=== PATIENT | male | born 1960 | race Caucasian/White ===

== ENCOUNTER 2016-10-07 14:41 | Inpatient (IN) | payer BC ==
[2016-10-07] MEDS ORDERED: NS 0.9% 1000 ML* 1,000 ML IV ONE (15:06)
[2016-10-07 15:16] LABS: Hematocrit 42 % (42-52); Hemoglobin 13.5 g/dl (14.0-18.0); Mean Corpuscular HGB Conc 32 g/dl (31-36); Mean Corpuscular Hemoglobin 30 pg (27-31); Mean Corpuscular Volume 92 fL (80-94); Mean Platelet Volume 10 um3 (7.4-10.4); Red Blood Count 4.54 10^6/ul (4.0-5.4); Red Cell Distribution Width 16 % (10.5-15); White Blood Count 13.6 10^3/ul (3.5-10.8)
[2016-10-07 15:18] LABS: Add Diff/Slide Review? Slide Review Added; Comments Flag Yes
--- NOTE | 2016-10-07 15:30 | RAD ---
INDICATION: Short of breath COMPARISON: June 27, 2015 TECHNIQUE: An AP portable view obtained at 1515 hours is submitted. FINDINGS: Bones/Soft Tissues: There are no acute bony findings. Cardiomediastinal: The cardiomediastinal silhouette is normal. Lungs: There are no infiltrates. Pleura: There are no pleural effusions. Other: None IMPRESSION: NO ACTIVE DISEASE.
[2016-10-07 15:32] LABS: Albumin 3.6 g/dL (3.2-5.2); BUN/Creatinine Ratio 26.2 (8-20); Calcium 9.1 mg/dL (8.6-10.3); EGFR African American 164.6 (>60); Globulin 3.7 g/dL (2-4); Potassium 3.8 mmol/L (3.5-5.0); Total Bilirubin 0.3 mg/dL (0.2-1.0); Total Protein 7.3 g/dL (6.4-8.9)
[2016-10-07 15:34] LABS: Troponin I 0.01 ng/mL (<0.04)
[2016-10-07] MEDS ORDERED: Diltiazem IV* 5 MG/ML 5 ML VIAL (for loading dose/IV Push) (25 MG) IV SLOW PU ONE (17:10)
[2016-10-07] MEDS ORDERED: Diltiazem DRIP* 100 MG/100 ML ADDV.BAG IVPB ONE (17:10)
[2016-10-07 17:45] LABS: Magnesium 1.6 mg/dL (1.9-2.7)
[2016-10-07] MEDS ORDERED: Acetaminophen TAB* 325 MG PO PRN (17:52)
[2016-10-07 18:03] LABS: TSH (Thyroid Stimulating Horm) 3.55 mcIU/mL (0.34-5.60)
[2016-10-07] MEDS ORDERED: Magnesium Sulf 4 GM/100 ML IV* 4,000 MG/100 ML BAG IVPB ONE (18:05)
[2016-10-07] MEDS ORDERED: Heparin DRIP 25,000 UNITS(*) 25,000 UNITS/500 ML BAG IVPB SCH (18:30)
[2016-10-07] MEDS ORDERED: Enoxaparin(*) 100 MG/ML SYR SUBCUT SCH (19:00)
[2016-10-07] MEDS ORDERED: Heparin VIAL(*) 5000 UNITS/ML VIAL (FIVE THOUSAND) IV SCH (19:00)
[2016-10-07] MEDS ORDERED: Diltiazem DRIP* 100 MG/100 ML ADDV.BAG IVPB SCH (19:00)
[2016-10-07] MEDS ORDERED: Metoprolol Tartrate IV* 1 MG/ML 5 ML VIAL IV PRN (19:08)
[2016-10-07] MEDS: Diltiazem TAB* 60 MG PO SCH ×2 (19:45→23:38)
[2016-10-07] MEDS ORDERED: Metoprolol Succinate XL TAB* 50 MG PO SCH (21:00)
--- NOTE | 2016-10-07 21:10 | HP ---
ADMISSION HISTORY AND PHYSICAL: DATE OF ADMISSION: 10/07/16 PRIMARY CARE PROVIDER: Dr. Augustine. ADMITTING PROVIDER: VERONICA Kay SUPERVISING PHYSICIAN: Dr. Wilmer Pittman* (dictated by VERONICA Kay). CHIEF COMPLAINT: Shortness of breath and tachycardia. HISTORY OF PRESENT ILLNESS: This is a 56-year-old gentleman with a history of seizure disorder which is well controlled as well as hypertension, history of prostate cancer, and ITP who was seen by his primary care provider earlier today with complaints of lingering cold symptoms. He has had nasal congestion with hoarseness and cough for the last couple of weeks. He has noted some increased shortness of breath mostly with activity. He was at a hockey game with a friend and had to climb a hill and noted severe palpitations and shortness of breath with that amount of activity, but stated it was also quite cold outside. So, he thought his symptoms may be due to that. He has had no associated chest pain. He reports to have some mild lower extremity edema. The patient states that he is quite cognizant of [id number] cold preparations in regards to his blood pressure management and has avoided all stimulant medications. He has been using plain Robitussin and loratadine for his cold symptoms, but denies any other bhlh-eog-jajenqk medications. He has a couple cups of coffee daily. No cigarette use. No illicit substances. The patient does state that he believes that he has sleep apnea, but has never had a prior sleep study. PAST MEDICAL HISTORY: 1. Hypertension. 2. Seizure disorder, well controlled and followed by Dr. Anderson. 3. History of prostate cancer, status post prostatectomy. 4. ITP, status post splenectomy. PAST SURGICAL HISTORY: 1. Splenectomy. 2. Prostatectomy. HOME MEDICATIONS: 1. Lexapro 10 mg p.o. daily. 2. Metoprolol succinate 50 mg p.o. at bedtime. 3. Nifedipine extended release 30 mg p.o. at bedtime. 4. Benicar HCT 40/25 one tablet p.o. daily. 5. Omeprazole 40 mg p.o. daily. 6. Dilantin 330 mg p.o. at bedtime. FAMILY HISTORY: Cardiac history includes maternal grandmother who has known coronary disease. No history in primary relatives. SOCIAL HISTORY: The patient denies a history of smoking. No illicit substance abuse. Occasional alcohol consumption. He is and lives alone. 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 REVIEW OF SYSTEMS: As noted above in HPI. PHYSICAL EXAMINATION GENERAL: This is a pleasant obese gentleman lying comfortably in hospital stretcher in no acute distress. VITAL SIGNS: Temperature 97.6 degrees Fahrenheit, pulse 129 beats per minute, respiratory rate 26, oxygen saturation 97% on room air, and blood pressure 175/ 132 mmHg. HEENT: Head is normocephalic, atraumatic. Mucous membranes are pink and moist. NECK: Supple, was free of lymphadenopathy. RESPIRATORY: Lungs are clear to auscultation without wheezes, crackles, or rhonchi. CARDIOVASCULAR: Heart has a rapid rate. No murmurs, rubs, or gallops noted. ABDOMEN: Soft and nontender to palpation. EXTREMITIES: There is trace edema to the ankles bilaterally. SKIN: Limited exam shows no concerning rashes or lesions. PSYCH: The patient is alert and appropriately oriented. LABORATORY EVALUATION: CBC shows a white blood cell count of 13,600, hemoglobin of 13.5 g/dL, and a platelet count of 273,000. Comprehensive metabolic panel shows a sodium of 139 mmol/L, potassium 3.8 mmol/L , serum bicarb of 30, BUN 17, creatinine 0.65, estimated GFR of 128. Random glucose is 112 mg/dL. Lactic acid normal at 1.8. Magnesium low at 1.6. Transaminases and total bilirubin within normal limits. Troponin negative at 0.01. TSH normal at 3.55. IMAGING: EKG shows what appears to be a flutter with a rate of about 125 beats per minute. Chest x-ray shows no acute process. ASSESSMENT AND PLAN: This is a 56-year-old gentleman with a history of hypertension, seizure disorder, and remote history of prostate cancer, and idiopathic thrombocytopenic purpura who presents with new-onset atrial flutter. 1. Atrial flutter with rapid ventricular response: The patient has been bolused with diltiazem in the emergency department. He remains hypertensive and tachycardic. Plan to admit on the diltiazem drip to the ICU. He is hypomagnesemic and we will replace with IV supplementation. Plan to repeat magnesium in the morning. Initiate anticoagulation with Lovenox. It sounds like he is unsure as to exactly when symptoms started. We will involve Cardiology tomorrow if he is difficult to rate control or remains in atrial flutter to consider cardioversion. He will require MULU prior. We will order a transthoracic echocardiogram, however, to evaluate for significant valvular disease or left ventricular dysfunction. Suspect sleep apnea likely complicated by his recent nasal congestion is driving his cardiac dysrhythmia. Recommend outpatient sleep study. 2. Hypertension: We will continue his home antihypertensives with the exception of his hydrochlorothiazide which may be contributing to his hypomagnesemia. 3. Morbid obesity with a BMI of 47. 4. Seizure disorder - continue Dilantin. Seizures are well controlled. He has not had a seizure in several years. 5. Remote history of prostate cancer, status post prostatectomy. 6. Remote history of idiopathic thrombocytopenic purpura, status post splenectomy. 7. Code status: The patient is full code. 8. Healthcare proxy: The patient has not identified an individual. 9. DVT prophylaxis: The patient to be anticoagulated with Lovenox. DISPOSITION: The patient is being admitted to ICU under inpatient status with a diltiazem drip. Anticipated length of stay is greater than 2 days. VERONICA KAY CC: Dr. Augustine* [id number]/CPS #: [id number] MTDD
[2016-10-07] MEDS: Phenytoin CAP(*) 100 MG CAP.ER PO SCH (21:52)
[2016-10-07] MEDS: PHENYTOIN 30 MG PO SCH (21:53)
[2016-10-07 22:56] LABS: Troponin I 0.01 ng/mL (<0.04)
[2016-10-08 04:48] LABS: Hematocrit 39 % (42-52); Hemoglobin 12.8 g/dl (14.0-18.0); Mean Corpuscular HGB Conc 33 g/dl (31-36); Mean Corpuscular Hemoglobin 30 pg (27-31); Mean Corpuscular Volume 91 fL (80-94); Mean Platelet Volume 10 um3 (7.4-10.4); Red Cell Distribution Width 16 % (10.5-15); White Blood Count 16.4 10^3/ul (3.5-10.8)
[2016-10-08 04:49] LABS: BUN/Creatinine Ratio 22.4 (8-20); Calcium 8.7 mg/dL (8.6-10.3); EGFR African American 187.8 (>60); Magnesium 2.2 mg/dL (1.9-2.7); Potassium 3.5 mmol/L (3.5-5.0)
[2016-10-08] MEDS: Diltiazem TAB* 60 MG PO SCH ×3 (05:11→18:18)
--- NOTE | 2016-10-08 06:50 | ED ---
Dat Orosco Matthew, scribed for Christian Wong MD on 10/07/16 at 1518 . HPI Cardiac - HPI Summary HPI Summary: A 56 y/o male presents to the ED from his PCP's office for EKG changes today. The patient went to his PCP for a general illness and SOB, which he's had intermittently for the last 3 weeks. However, his symptoms have been persistent for the past week. Initially he had associated congestion and cough. Currently, he has SOB, chest congestion, hoarse voice, sinus congestion, post-nasal drip, cough, difficulty sleeping, and pedal edema. He denies palpitations. His SOB has improved over the last 2 days and he's now able to sleep laying down. However, his breathing still worsens lying down. PMHx includes Thrombocytopenia , seizures, HTN, and NO HLD. SHx radical prostatectomy, splenectomy, and double inguinal hernia repair. - History of Current Complaint Chief Complaint: EDShortnessOfBreath Stated Complaint: CHEST PAIN Hx Obtained From: Patient Onset/Duration: Started Days Ago, Atraumatic, Still Present Timing: Constant Current Severity: None Pain Intensity: 0 Pain Scale Used: 0-10 Numeric Associated Signs and Symptoms: Positive: Shortness of Breath, Cough, Nasal Congestion, Other: - EKG changes; chest congestion; hoarse voice, pedal edema. Negative: Palpitations - Additional Pertinent History Primary Care Physician: [id number] - Allergy/Home Medications Allergies/Adverse Reactions: Allergies Allergy/AdvReac Type Severity Reaction Status Date / Time Adhesive Tape Allergy REDNESS, Verified 07/10/15 12:06 ITCHNESS Naproxen Allergy Hives/Diff. Verified 07/10/15 12:06 Breathing/I tching ENVIRONMENTAL Allergy Unknown Uncoded 07/10/15 12:06 Reaction Details nutrasweet Allergy Headache Uncoded 07/10/15 12:06 PMH/Surg Hx/FS Hx/Imm Hx Cardiovascular History: Reports: Hx Hypertension - on medication, Other Cardiovascular Problems/Disorders - SCARLET FEVER A CHILD Respiratory History: Reports: Hx Sleep Apnea - POSSIBLE BUT NEVER BEEN DIAGNOSED WITH, Other Respiratory Problems/Disorders - MONO A TEEN GI History: Reports: Hx Gastroesophageal Reflux Disease - ON MEDICATION FOR Sensory History: Reports: Hx Contacts or Glasses - GLASSES Denies: Hx Hearing Aid Opthamlomology History: Reports: Hx Contacts or Glasses - GLASSES Neurological History: Reports: Hx Migraine - MONTHLY - TREATS WITH TYLENOL AND CAFFEINE, Hx Seizures - EPILEPTIC- HAS NOT HAD A SEIZURE SINCE AGE 18 OR 19 Psychiatric History: Reports: Hx Anxiety, Hx Depression - ON MEDICATION FOR - Cancer History Cancer Type, Location and Year: prostate 2010 Hx Chemotherapy: Yes - Surgical History Surgery Procedure, Year, and Place: 2010 prostatectomy, 2009 bilat inguinal hernia repair, oral surgery, endoscopy Hx Anesthesia Reactions: No Infectious Disease History: No Infectious Disease History: Reports: Hx Hepatitis Denies: Traveled Outside the [place] in Last 30 Days - Family History Family History: No FHx of malignant hyperthermia. No FHx of anesthesia reaction - Social History Alcohol Use: Rare Substance Use Type: Reports: None Smoking Status (MU): Current Some Day Smoker Amount Used/How Often: 2 CIGARS PER YEAR-OFF AND ON 30+ YEARS Review of Systems Constitutional: Other - Difficulty sleeping Eyes: Negative ENT: Other - Hoarse Voice; Post-nasal drip Positive: Nasal Discharge Cardiovascular: Negative Negative: Palpitations Respiratory: Other - Chest congestion Positive: Shortness Of Breath, Cough Gastrointestinal: Negative Genitourinary: Negative Positive: Edema - pedal Skin: Negative Neurological: Negative Psychological: Normal All Other Systems Reviewed And Are Negative: Yes Physical Exam Triage Information Reviewed: Yes Vital Signs On Initial Exam: Initial Vitals Temp Pulse Resp BP Pulse Ox 97.6 F 129 26 175/132 97 10/07/16 14:41 10/07/16 14:41 10/07/16 14:41 10/07/16 14:41 10/07/16 14:41 Vital Signs Reviewed: Yes Appearance: Positive: No Pain Distress, Obese - Morbidity Skin: Positive: Warm, Dry Head/Face: Positive: Normal Head/Face Inspection Eyes: Positive: Normal ENT: Positive: Normal ENT inspection, Pharyngeal erythema Neck: Positive: Supple, Nontender Respiratory/Lung Sounds: Positive: Clear to Auscultation, Breath Sounds Present Cardiovascular: Positive: Tachycardia Abdomen Description: Positive: Nontender, Soft Bowel Sounds: Positive: Present Musculoskeletal: Positive: Other - Very minimal peripheral edema Neurological: Positive: Alert, Oriented to Person Place, Time Psychiatric: Positive: Affect/Mood Appropriate - Karen Coma Scale Coma Scale Total: 15 Diagnostics - Vital Signs Vital Signs Temp Pulse Resp BP Pulse Ox 10/07/16 14:41 97.6 F 129 26 175/132 97 - Laboratory Lab Results: Lab Results 10/07/16 10/07/16 10/07/16 Range/Units 15:00 15:00 15:00 WBC 13.6 H (3.5-10.8) 10^3/ul RBC 4.54 (4.0-5.4) 10^6/ul Hgb 13.5 L (14.0-18.0) g/dl Hct 42 (42-52) % MCV 92 (80-94) fL MCH 30 (27-31) pg MCHC 32 (31-36) g/dl RDW 16 H (10.5-15) % Plt Count 273 (150-450) 10^3/ul MPV 10 (7.4-10.4) um3 Neut % (Auto) 59.8 (38-83) % Lymph % (Auto) 24.4 L (25-47) % [place] % (Auto) 12.9 H (1-9) % Eos % (Auto) 2.1 (0-6) % Baso % (Auto) 0.8 (0-2) % Absolute Neuts (auto) 8.2 H (1.5-7.7) 10^3/ul Absolute Lymphs (auto) 3.3 (1.0-4.8) 10^3/ul Absolute Monos (auto) 1.8 H (0-0.8) 10^3/ul Absolute Eos (auto) 0.3 (0-0.6) 10^3/ul Absolute Basos (auto) 0.1 (0-0.2) 10^3/ul Absolute Nucleated RBC 0.02 10^3/ul Nucleated RBC % 0.1 Sodium 139 (133-145) mmol/L Potassium 3.8 (3.5-5.0) mmol/L Chloride 101 (101-111) mmol/L Carbon Dioxide 30 (22-32) mmol/L Anion Gap 8 (2-11) mmol/L BUN 17 (6-24) mg/dL Creatinine 0.65 L (0.67-1.17) mg/dL Est GFR ( Amer) 164.6 (>60) Est GFR (Non-Af Amer) 128.0 (>60) BUN/Creatinine Ratio 26.2 H (8-20) Glucose 112 H (70-100) mg/dL Lactic Acid 1.8 (0.5-2.0) mmol/L Calcium 9.1 (8.6-10.3) mg/dL Magnesium 1.6 L (1.9-2.7) mg/dL Total Bilirubin 0.30 (0.2-1.0) mg/dL AST 28 (13-39) U/L ALT 36 (7-52) U/L Alkaline Phosphatase 97 (34-104) U/L Troponin I 0.01 (<0.04) ng/mL C-Reactive Protein (< 5.00) mg/L B-Natriuretic Peptide ( - 100) pg/mL Total Protein 7.3 (6.4-8.9) g/dL Albumin 3.6 (3.2-5.2) g/dL Globulin 3.7 (2-4) g/dL Albumin/Globulin Ratio 1.0 (1-3) TSH 3.55 (0.34-5.60) mcIU/mL 10/07/16 10/07/16 Range/Units 15:00 16:36 WBC (3.5-10.8) 10^3/ul RBC (4.0-5.4) 10^6/ul Hgb (14.0-18.0) g/dl Hct (42-52) % MCV (80-94) fL MCH (27-31) pg MCHC (31-36) g/dl RDW (10.5-15) % Plt Count (150-450) 10^3/ul MPV (7.4-10.4) um3 Neut % (Auto) (38-83) % Lymph % (Auto) (25-47) % [place] % (Auto) (1-9) % Eos % (Auto) (0-6) % Baso % (Auto) (0-2) % Absolute Neuts (auto) (1.5-7.7) 10^3/ul Absolute Lymphs (auto) (1.0-4.8) 10^3/ul Absolute Monos (auto) (0-0.8) 10^3/ul Absolute Eos (auto) (0-0.6) 10^3/ul Absolute Basos (auto) (0-0.2) 10^3/ul Absolute Nucleated RBC 10^3/ul Nucleated RBC % Sodium (133-145) mmol/L Potassium (3.5-5.0) mmol/L Chloride (101-111) mmol/L Carbon Dioxide (22-32) mmol/L Anion Gap (2-11) mmol/L BUN (6-24) mg/dL Creatinine (0.67-1.17) mg/dL Est GFR ( Amer) (>60) Est GFR (Non-Af Amer) (>60) BUN/Creatinine Ratio (8-20) Glucose (70-100) mg/dL Lactic Acid (0.5-2.0) mmol/L Calcium (8.6-10.3) mg/dL Magnesium (1.9-2.7) mg/dL Total Bilirubin (0.2-1.0) mg/dL AST (13-39) U/L ALT (7-52) U/L Alkaline Phosphatase (34-104) U/L Troponin I (<0.04) ng/mL C-Reactive Protein 16.58 H (< 5.00) mg/L B-Natriuretic Peptide 68 ( - 100) pg/mL Total Protein (6.4-8.9) g/dL Albumin (3.2-5.2) g/dL Globulin (2-4) g/dL Albumin/Globulin Ratio (1-3) TSH (0.34-5.60) mcIU/mL Result Diagrams: 10/08/16 04:15 10/08/16 04:15 Lab Statement: Any lab studies that have been ordered have been reviewed, and results considered in the medical decision making process. - Radiology CXR Xray Interpretation: No Acute Changes - IMPRESSION: NO ACTIVE DISEASE. Radiology Interpretation Completed By: Radiologist - EKG 14:43 Cardiac Rate: Tachycardia - 129 bpm EKG Rhythm: Sinus Tachycardia EKG Interpretation: Or Atrial Flutter; 2:1 Block Re-Evaluation - Re-Evaluation First Eval Re-Evaluation Time: 17:09 Change: Unchanged Comment: The patient was found to be in atrial flutter and continues to have tachycardia. Will discuss the case with Dr. May for admission. Disposition - Course Course Of Treatment: Mr. Maynard presented from his PMD with a C/O only URI symptoms including SOB with exertion. He was tachy and his ecg showed either a sinus or a-flutter. He was hydrated a little and then with carotid massage I was able to parse out that he was in a-flutter with a 2:1 block. He was started on cardizem at that point and the hospitalists were asked to admit him. - Diagnoses Provider Diagnoses: Atrial flutter with rapid ventricular response - Physician Notifications Discussed Care Of Patient With: Dr. May (Hospitalist) at 17:11 -- Notified of patient's history and will admit the patient into her services. - Critical Care Time Critical Care Time: 30-74 min Discharge - Discharge Plan Condition: Stable Disposition: ADMITTED TO [facility] The documentation as recorded by the Dat potts Matthew accurately reflects the service I personally performed and the decisions made by me, Christian Wong MD.
[2016-10-08] MEDS: Omeprazole CAP* 20 MG PO SCH (07:11)
[2016-10-08] MEDS: Citalopram TAB* 20 MG PO SCH (08:47)
[2016-10-08] MEDS: Valsartan TAB* 160 MG PO SCH (08:47)
[2016-10-08] MEDS ORDERED: Hydrochlorothiazide TAB* 25 MG PO SCH (09:00)
[2016-10-08] MEDS ORDERED: Metoprolol Tartrate TAB* 50 mg PO SCH ×2 (09:00→21:00)
[2016-10-08] MEDS ORDERED: Metoprolol Tartrate TAB* 25 MG PO ONE (12:00)
--- NOTE | 2016-10-08 12:35 | ECHO ---
Patient: [facility]GE [facility] Rec#: [id number] : 1960 Date: 10/08/2016 Age: 56y Height: 193 cm / 76.0 in Weight: 165 kg / 363.7 lbs Sex: M BSA: 2.86 Room#: 439 Admit Date#: 10/07/2016 Type: Inpatient Referring: Deny Antonio Reading: Anmol Perera MD [employer] Scientist: Lev Bentley RDCS CC: Anne Marie Augustine MD Transthoracic Echocardiogram Indication: NEW A.FLUTTER, SOB BP: 159/101 HR: 103 Rhythm: A-Flutter Findings History: HTN,seizure disorder, prostate cancer, ITP, splenectomy,morbid obesity Technical Comments: The study is technically difficult. Completed 1200 The study is technically limited due to poor acoustic windows. The study is technically limited due to poor parasternal windows. The study is technically limited due to poor apical windows. The study is technically limited due to patient body habitus. Left Ventricle: The left ventricular chamber size is normal. Mild concentric left ventricular hypertrophy is observed. Mild global hypokinesis of the left ventricle is observed. There is mildly decreased left ventricular systolic function. The estimated ejection fraction is 40-45%. The assessment of diastolic function is non-diagnostic. Left Atrium: The left atrium is mildly dilated. Right Ventricle: The right ventricle is mild to moderately dilated. The right ventricular global systolic function is mildly to moderately reduced. Right Atrium: The right atrium is moderately dilated. Aortic Valve: The aortic valve structure is not well visualized. There is no evidence of aortic regurgitation. There is no evidence of aortic stenosis. Mitral Valve: There is trace to mild mitral regurgitation. Tricuspid Valve: The tricuspid valve structure is not well visualized. There is trace tricuspid regurgitation. Unable to estimate the right ventricular systolic pressure. Pulmonic Valve: The pulmonic valve structure is not well visualized. There is no evidence of pulmonic regurgitation. There is no pulmonic stenosis. Pericardium: There is no pericardial effusion. Aorta: There is no dilatation of the ascending aorta. There is no dilatation of the aortic arch. There is no dilation of the aortic root. Pulmonary Artery: The main pulmonary artery is not well visualized. Venous: The inferior vena cava appears normal in size. There is a greater than 50% respiratory change in the inferior vena cava dimension. Conclusions The study is technically difficult. Completed 1200 There is mildly decreased left ventricular systolic function. The estimated ejection fraction is 40-45%. Mild global hypokinesis of the left ventricle is observed. The left ventricular chamber size is normal. Mild concentric left ventricular hypertrophy is observed. The left atrium is mildly dilated. The right ventricle is mild to moderately dilated. The right ventricular global systolic function is mildly to moderately reduced. The right atrium is moderately dilated. Functionally benign heart valves. There is no prior echocardiogram available to compare with at this time. Results discussed with Ms. Antonio of [facility] who are the attending service. Measurements Name Value Normal Range RVIDd (AP) 2D 3.2 cm (0.9 - 2.6) RVDdMajor (2D) 3.5 cm (2.2 - 4.4) RAd ISD 4CH 6 cm (3.4 - 4.9) RA (A4C)W 3.6 cm (2.9 - 4.6) IVSd (2D) 1.1 cm (0.6 - 1) LVPWd (2D) 1.3 cm (0.6 - 1) LVIDd (2D) 5.2 cm (3.6 - 5.4) LVIDs (2D) 3.9 cm - LV FS (2D) 23 % (25 - 45) Aortic Annulus 1.5 cm (1.4 - 2.6) Ao root diameter (2D) 2.9 cm (2.1 - 3.5) Ascending Ao 3.2 cm (2.1 - 3.4) Aortic arch 3.3 cm (1.8 - 3.4) LA dimension (AP) 2D 4.1 cm (2.3 - 3.8) LAd ISD 4CH 5.4 cm (2.9 - 5.3) LA ISD 4CH W 4 cm (2.5 - 4.5) Name Value Normal Range LA ESV SP 4CH (A/L) 76 ml - LA ESV SP 2CH (A/L) 105 ml - LA ESV BP (A/L) 92 ml - LA ESV BP (A/L) index 32.06 ml/m2 - LA ESV SP 4CH (MOD) 73 ml - LA ESV SP 2CH (MOD) 99 ml - Name Value Normal Range MV E-wave Vmax 0.93 m/sec - MV deceleration time 116 msec - MV A-wave Vmax 0.92 m/sec - MV E:A ratio 1.03 ratio - LV septal e' Vmax 0.09 m/sec - LV lateral e' Vmax 0.09 m/sec - LV E:e' septal ratio 10.3 ratio - LV E:e' lateral ratio 10.3 ratio - Name Value Normal Range AV Vmax 0.74 m/sec - AV VTI 9.6 cm - AV peak gradient 2.19 mmHg - AV mean gradient 1.14 mmHg - LVOT diameter 1.8 cm - LVOT Vmax 0.6 m/sec - EVAN (continuity Vmax) 2.1 cm2 - EVAN (continuity VTI) 2.8 cm2 - Name Value Normal Range IVC diameter 0.75 cm - Name Value Normal Range PV Vmax 0.6 m/sec -
[2016-10-08] MEDS ORDERED: Potassium Chlor TAB* 20 MEQ TAB.ER PO ONE (13:51)
[2016-10-08] MEDS ORDERED: Furosemide IV* 10 MG/ML 10 ML VIAL (100 MG) IV ONE (14:23)
--- NOTE | 2016-10-08 14:23 | PN ---
Subjective Date of Service: 10/08/16 Interval History: This is a 56 yo gentleman with HTN and morbid obesity admitted yesterday to new onset atrial flutter with a rapid rate. He has been started on oral diltiazem and increased his home dose of metoprolol. Mg was replaced overnight. Patient reports no complaints of dyspnea or chest pain. He has some LE edema, not any worse since admission. Objective Active Medications: Acetaminophen (Tylenol Tab*) 650 mg PO Q4H PRN PRN Reason: FEVER/PAIN Citalopram Hydrobromide (Celexa Tab*) 20 mg PO DAILY [facility] Last Admin: 10/08/16 08:47 Dose: 20 mg Diltiazem HCl (Cardizem Tab*) 60 mg PO Q6HR [facility] Metoprolol Tartrate (Lopressor Iv*) 5 mg IV Q6H PRN PRN Reason: HR >120 bpm Metoprolol Tartrate (Lopressor Tab*) 75 mg PO Q12HR [facility] Omeprazole (Prilosec Cap*) 40 mg PO DAILY@0730 [facility] Last Admin: 10/08/16 07:11 Dose: 40 mg Phenytoin Sodium (Dilantin Cap(*)) 30 mg PO BEDTIME [facility] Last Admin: 10/07/16 21:53 Dose: 30 mg Phenytoin Sodium (Dilantin Cap(*)) 300 mg PO BEDTIME [facility] Last Admin: 10/07/16 21:52 Dose: 300 mg Rivaroxaban (Xarelto (*)) 20 mg PO 1700 [facility] Valsartan (Diovan Tab*) 320 mg PO DAILY [facility] Last Admin: 10/08/16 08:47 Dose: 320 mg Vital Signs: Temp Pulse Resp BP Pulse Ox 97.4 F 106 20 148/101 95 10/08/16 12:09 10/08/16 12:09 10/08/16 12:09 10/08/16 12:09 10/08/16 12:09 Oxygen Devices in Use Now: None Appearance: Well appearing obese middle aged gentleman in NAD Neck: NL Appearance and Movements; NL JVP Respiratory: Symmetrical Chest Expansion and Respiratory Effort, Clear to Auscultation Cardiovascular: NL Sounds; No Murmurs; No JVD, RRR - tachycardic Abdominal: NL Sounds; No Tenderness; No Distention Extremities: - - 1+ LE edema Neurological: Alert and Oriented x 3 Result Diagrams: 10/08/16 04:15 10/08/16 04:15 Additional Lab and Data: . Diagnostic Imaging: CXR - NAD Tele - atrial flutter, rate 100-130 bpm, one 2.3 sec pause Echo - LVEF 40-45%, mild to mod RV dysfunction Assess/Plan/Problems-Billing Assessment: This is a 56 yo gentleman with HTN and morbid obesity who presents with new onset atrial flutter. - Patient Problems (1) Atrial flutter Comment: Remains in atrial flutter with rate 100-130 bpm Will increase metoprolol tartrate further to 75 mg bid Continue immediate release diltiazem Mg has now been corrected Borderline hypokalemic, will replace orally Echo shows mildly reduced LV fxn, but more notably RV fxn Appreciate cardiology consult (2) Acute systolic heart failure Comment: RV and LV dysfunction Ddimer negative Likely due to untreated sleep apnea and hypertension Will lightly diuress with IV Lasix (3) Leukocytosis Comment: Unsure of etiology No obvious source of acute bacterial infection Procalcitonin <0.1, CRP only mildly elevated No assoc L shift Perhaps due to viral illness, he has been complaining of recent cough/congestion No infiltrate on CXR, afebrile No other focal complaints to suggest another source of infection (4) HTN (hypertension) Comment: Poor control Cont valsartan and MARK-I HCTZ held due to hypokalemia and hypomagnesemia Titrating up metoprolol and diltiazem for rate control (5) Morbid obesity Comment: BMI 46 Discussed weight loss in detail, his comorbid conditions would benefit greatly from weight loss Suggested [facility] Patient has been considering gastric bypass surgery Status and Disposition: Patient requires continued hospital stay. Possible discharge tomorrow.
--- NOTE | 2016-10-08 17:57 | CONS ---
CC: Anne Marie Augustine MD CARDIOLOGY CONSULTATION: DATE OF CONSULT: 10/08/16 REFERRAL PROVIDERS: 1. VERONICA Bruner 2. Lizy Mya MD REASON FOR CARDIOLOGY CONSULTATION: Newly diagnosed atrial flutter. HISTORY OF PRESENT ILLNESS: The patient states that he has had cold symptoms for about a month including sinus drainage, cough, and [id number] hoarse voice. He went to see his primary care physician yesterday "to get antibiotics" and there his pulse was apparently felt to be high. He had an EKG, which showed atrial flutter and he was then sent to the emergency room. Here, he was originally begun on a Cardizem drip and heparin drip and his heart rate is better controlled. The patient denies any clear palpitations including at this time. He states he may have had 1 episode of palpitations. He has had some chest discomfort with coughing, but no angina. He has felt shortness of breath with climbing stairs. The patient denies any past cardiac history. PAST MEDICAL HISTORY: Include: 1. Hypertension. 2. Seizure disorder, well controlled and followed by Dr. Anderson of Neurology. Per the patient, his last seizure was in the . 3. History of prostate cancer, status post prostatectomy in 2010. He is followed by Dr. Peter. He apparently recently has had microscopic hematuria. 4. 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 5. History of migraine headaches. 6. History of significant anxiety and depression. 7. GERD symptoms. PAST SURGICAL HISTORY: Splenectomy and prostatectomy. OUTPATIENT MEDICATIONS: 1. Lexapro 10 mg once a day. 2. Toprol-XL 50 mg p.o. at bedtime. 3. Nifedipine 30 mg p.o. at bedtime. 4. Benicar/hydrochlorothiazide 40/25 mg once a day. 5. Omeprazole 40 mg once a day. 6. Dilantin 330 mg p.o. at bedtime. ALLERGIES TO MEDICATIONS: The patient believes are to NAPROSYN, which he feels may have caused him to be wheezy and hivey in the past, so he avoids that medication. He also avoids NUTRASWEET as that has given him headaches. He denies shrimp, seafood, or dye allergy. FAMILY HISTORY: He denies cardiac disease. His paternal grandfather of a stroke in his 50s. No family history of diabetes. There is a family history of cancer. SOCIAL HISTORY: He smokes 2 cigars per year. He has never smoked cigarettes. He drinks 2 drinks of alcohol per month and does not abuse alcohol. He last used pot in his 40s, but does not use drugs regularly at this time. He is since 2001 and lives alone. 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 He does not do regular exercise. REVIEW OF SYSTEMS: He denies personal history of stroke, vomiting blood, coughing up blood, bright red blood per rectum, or bleeding stomach ulcers. They is concern about he has microscopic hematuria. He has had a history of prostate cancer, status post prostatectomy at the age of 51. He has had ITP with a history of splenectomy in July 2015. He feels he may have a large nonobstructive renal calculus versus cyst on his kidney, which his urologist has apparently been following. There is some question of whether the patient has a history of asthma. He denies emphysema. He has had pneumonia, not requiring hospitalization. He denies tuberculosis. He has questionable obstructive sleep apnea as his ex- girlfriend has noted for the past 4 years that the patient has had episodes of apnea while sleeping. He does not use home oxygen. He denies diabetes, hypertension, prior PR, congestive heart failure, cardiac surgery, cardiac murmurs, or palpitations. He has a history of significant anxiety and depression. He denies lupus or psoriasis. He has a history of seizures, last in the 1980s. He denies myasthenia gravis. He denies pulmonary emboli, deep venous thrombosis, or peripheral arterial disease. He has occasional pain in his left calf when he walks. He has recently had edema for the past month. He has a history of GERD. He denies renal disease, liver disease, or thyroid disease. All other review of systems are negative except as described above. PHYSICAL EXAM: Height 6 feet 2 inches, weight 359 pounds, temperature is 98.7 degrees Fahrenheit, pulses range from 96 to 116, blood pressure 159/101 to 143/ 116, respiratory rate 18, and O2 saturation 94%. General exam: He is a pleasant, obese gentleman, in no acute distress at rest, but he is quite anxious. HEENT: Shows the cranium is normocephalic and atraumatic. He has moist mucosal membranes. Neck: Veins are not distended on very limited assessment as the patient is obese and has a garcía. There are no carotid bruits. Visible skin: Warm and perfused. Affect appropriate. He appears oriented. No significant kyphoscoliosis on back exam. Lungs: Clear to auscultation. Cardiac Exam: S1 and S2. Irregular rate, controlled. No significant murmurs, rubs, or gallops. PMI is nondisplaced. Abdomen: Soft, obese, and appears benign. Extremities: With no more than trivial peripheral edema. Pulses appear grossly intact. DIAGNOSTIC STUDIES/LAB DATA: A 12-lead EKG is reviewed from 10/08/16 at 06:58 a.m., which shows atrial flutter at a heart rate of 111 beats per minute with a nonspecific IVCD. White blood cell count today is 16.4 and that is elevated further from 13.6 on admission, hematocrit is 39 and platelet count is 256. Sodium 135, potassium 3.5, chloride 100, and bicarbonate 30. His troponin was 0.01 followed by 0.01. Creatinine is 0.58 and BUN 13. CRP is 16.58. BNP is 68. TSH 3.55. Magnesium was 1.6 on admission and after repletion is now 2.2. Chest x-ray report on admission per Radiology, no acute disease. IMPRESSION: Mr. Maynard is a pleasant 56-year-old gentleman with presumed obstructive sleep apnea, known history of hypertension, obesity who has had upper respiratory infection symptoms for a month. He is incidentally discovered to have atrial flutter responding to rate control. The onset of his atrial flutter is unknown in terms of timing. The clear precipitant of his atrial flutter appears to be likely undiagnosed and hence untreated obstructive sleep apnea, current upper respiratory infection with leukocytosis and increased CRP as well as initial hypomagnesemia likely related to diuretic use. For now, I would recommend to correct the underlying conditions prior to resuming normal sinus rhythm to assure best chance at stability of resumption of sinus rhythm and so will pursue in the short term heart rate control and anticoagulation as those underlying suspected precipitant issues are addressed. PLAN/RECOMMENDATIONS: 1. Recommend continuing treatment of underlying conditions including URI, hypomagnesemia, and would keep magnesium greater than 2, potassium greater than 4 as well as evaluating for sleep apnea and if present, as seems likely, treating his clearly untreated sleep apnea if present as untreated VAUGHN will promote atrial flutter. 2. Agree with heart rate control with Lopressor and I would change to 75 mg p.o. b.i.d. and treat with Xarelto 20 mg once a day for now while contemplating cardioversion. If his heart rate remains high despite the Lopressor, could add diltiazem CD 120 mg once a day. 3. The patient should follow up with myself in 6 to 8 weeks and if his atrial flutter persists at that time despite exclusion of obstructive sleep apnea (or treatment of it if present) as well as resolution of URI and electrolyte abnormalities, then I would consider cardioversion at that time. 4. Echo pending which will be reported separately. 5. Other management as per the hospitalist medicine service and I have discussed the case with VERONICA Lu, of the hospitalist medicine service. The above was discussed in detail with the patient and he appears to be in agreement with these recommendations. [id number]/[facility] #: [id number] MTDD
[2016-10-08] MEDS: Rivaroxaban TAB(*) 20 MG TAB PO SCH (18:18)
[2016-10-08] MEDS: PHENYTOIN 30 MG PO SCH (20:10)
[2016-10-08] MEDS: Phenytoin CAP(*) 100 MG CAP.ER PO SCH (20:10)
[2016-10-09] MEDS: Diltiazem TAB* 60 MG PO SCH ×2 (00:05→08:05)
[2016-10-09 08:24] LABS: Hematocrit 41 % (42-52); Hemoglobin 13.3 g/dl (14.0-18.0); Mean Corpuscular HGB Conc 32 g/dl (31-36); Mean Corpuscular Hemoglobin 30 pg (27-31); Mean Corpuscular Volume 92 fL (80-94); Mean Platelet Volume 10 um3 (7.4-10.4); Red Blood Count 4.51 10^6/ul (4.0-5.4); Red Cell Distribution Width 15 % (10.5-15); White Blood Count 11.9 10^3/ul (3.5-10.8)
[2016-10-09] MEDS: Citalopram TAB* 20 MG PO SCH (08:33)
[2016-10-09] MEDS: Omeprazole CAP* 20 MG PO SCH (08:33)
[2016-10-09] MEDS: Valsartan TAB* 160 MG PO SCH (08:33)
[2016-10-09 08:50] LABS: BUN/Creatinine Ratio 22.6 (8-20); EGFR African American 173.9 (>60); EGFR Non-African American 135.2 (>60); Magnesium 1.9 mg/dL (1.9-2.7); Potassium 4.3 mmol/L (3.5-5.0)
[2016-10-09] MEDS ORDERED: Magnesium Sulfate 1 GM IV* 1 GM/100 ML BAG IV ONE (09:12)
[2016-10-09] MEDS: Metoprolol Tartrate TAB* 25 MG PO SCH ×2 (09:47→20:47)
[2016-10-09] MEDS ORDERED: Furosemide IV* 10 MG/ML 2 ML VIAL (20 MG) IV SLOW PU ONE (14:13)
--- NOTE | 2016-10-09 14:21 | PN ---
Subjective Date of Service: 10/09/16 Interval History: Pt is feeling well. He denies any pain. No SOB. Objective Active Medications: Acetaminophen (Tylenol Tab*) 650 mg PO Q4H PRN PRN Reason: FEVER/PAIN Last Admin: 10/08/16 18:18 Dose: 650 mg Citalopram Hydrobromide (Celexa Tab*) 20 mg PO DAILY [facility] Last Admin: 10/09/16 08:33 Dose: 20 mg Metoprolol Tartrate (Lopressor Tab*) 25 mg PO BID [facility] Last Admin: 10/09/16 09:47 Dose: 25 mg Omeprazole (Prilosec Cap*) 40 mg PO DAILY@0730 [facility] Last Admin: 10/09/16 08:33 Dose: 40 mg Phenytoin Sodium (Dilantin Cap(*)) 30 mg PO BEDTIME [facility] Last Admin: 10/08/16 20:10 Dose: 30 mg Phenytoin Sodium (Dilantin Cap(*)) 300 mg PO BEDTIME [facility] Last Admin: 10/08/16 20:10 Dose: 300 mg Rivaroxaban (Xarelto (*)) 20 mg PO 1700 [facility] Last Admin: 10/08/16 18:18 Dose: 20 mg Valsartan (Diovan Tab*) 320 mg PO DAILY [facility] Last Admin: 10/09/16 08:33 Dose: 320 mg Vital Signs 10/08/16 10/08/16 10/08/16 15:47 19:19 20:00 Temperature 98.5 F 97.5 F Pulse Rate 114 103 Respiratory 18 16 18 Rate Blood Pressure 133/98 156/96 (mmHg) O2 Sat by Pulse 92 Oximetry 10/08/16 10/09/16 10/09/16 23:19 03:56 08:00 Temperature 97.2 F 96.5 F Pulse Rate 94 87 Respiratory 16 20 18 Rate Blood Pressure 138/92 147/79 (mmHg) O2 Sat by Pulse 93 96 Oximetry 10/09/16 10/09/16 08:42 11:31 Temperature 98.2 F 98.1 F Pulse Rate 130 99 Respiratory 16 16 Rate Blood Pressure 147/110 152/100 (mmHg) O2 Sat by Pulse 97 94 Oximetry Oxygen Devices in Use Now: None - 94% Appearance: Middle aged morbidly obese male lying flat in bed, NAD Eyes: No Scleral Icterus Ears/Nose/Mouth/Throat: Mucous Membranes Moist Respiratory: Symmetrical Chest Expansion and Respiratory Effort, Clear to Auscultation Cardiovascular: NL Sounds; No Murmurs; No JVD, - - irregularly irregular, tachycardic, 1+ B/L LE edema Abdominal: NL Sounds; No Tenderness; No Distention Extremities: No Clubbing, Cyanosis Skin: No Rash or Ulcers, No Nodules or Sclerosis Neurological: Alert and Oriented x 3 Result Diagrams: 10/09/16 07:55 10/09/16 07:55 Additional Lab and Data: . Diagnostic Imaging: CXR - NAD Tele - atrial flutter, rate 100-130 bpm, one 2.3 sec pause Echo - LVEF 40-45%, mild to mod RV dysfunction Assess/Plan/Problems-Billing Mr Maynard is a 56 yo M with a PMHx of HTN and morbid obesity who presents with new onset atrial flutter. - Patient Problems (1) Atrial flutter Current Visit: Yes Status: Acute Code(s): I48.92 - UNSPECIFIED ATRIAL FLUTTER SNOMED Code(s): 6800514 Comment: The patient's HR is under fair control currently-elevated this AM as his metoprolol and diltiazem were discontinued due to 5 second pause overnight while sleeping. I have started back metoprolol tartrate 25mg BID ( down from 75mg BID). His HR increases with activity. I suspect his afib is secondary to untreated obstructive sleep apnea. I suspect the pauses are related to the VAUGHN. Continue xarelto. Borderline hypokalemic, will replace orally Echo shows mildly reduced LV fxn, but more notably RV fxn Appreciate cardiology consult (2) Diastolic CHF, acute Current Visit: Yes Status: Acute Code(s): I50.31 - ACUTE DIASTOLIC ( CONGESTIVE) HEART FAILURE SNOMED Code(s): 063220729 Comment: Likely related to rapid afib. His EF is 40-45%. Give lasix 20mg IV x1 now. (3) Morbid obesity Current Visit: Yes Status: Acute Code(s): E66.01 - MORBID (SEVERE) OBESITY DUE TO EXCESS CALORIES SNOMED Code(s): 160925426 Comment: Encourage diet/exercise. (4) HTN (hypertension) Current Visit: Yes Status: Acute Code(s): I10 - ESSENTIAL (PRIMARY) HYPERTENSION SNOMED Code(s): 00618813 Comment: BP remains poorly controlled. Continue metoprolol and valsartan. Add back HCTZ. Monitor electrolytes and BP. (5) VAUGHN (obstructive sleep apnea) Current Visit: Yes Status: Acute Code(s): G47.33 - OBSTRUCTIVE SLEEP APNEA ( ADULT) (PEDIATRIC) SNOMED Code(s): 68370483 Comment: Pt likely has VAUGHN. Dr. De Guzman will see the patient tomorrow. He can not be set up for CPAP until he has a sleep study that can not be done as an inpatient. Will check nocturnal desaturation study tonight to see if he qualifies for supplemental O2. (6) DVT prophylaxis Current Visit: Yes Status: Acute Code(s): CLI4365 - SNOMED Code(s): 833513154 Comment: giovani (7) Full code status Current Visit: Yes Status: Acute Code(s): Z78.9 - OTHER SPECIFIED HEALTH STATUS SNOMED Code(s): 201901969 Status and Disposition: Patient requires continued hospital stay. Possible discharge tomorrow.
[2016-10-09] MEDS: Hydrochlorothiazide TAB* 25 MG PO SCH (14:42)
[2016-10-09] MEDS: Rivaroxaban TAB(*) 20 MG TAB PO SCH (16:29)
[2016-10-09] MEDS ORDERED: Acetaminophen TAB* 325 MG ONE (20:45)
[2016-10-09] MEDS: Phenytoin CAP(*) 100 MG CAP.ER PO SCH (20:48)
[2016-10-09] MEDS: PHENYTOIN 30 MG PO SCH (20:49)
[2016-10-10] MEDS: Metoprolol Tartrate TAB* 25 MG PO SCH (08:07)
[2016-10-10] MEDS: Valsartan TAB* 160 MG PO SCH (08:07)
[2016-10-10] MEDS: Hydrochlorothiazide TAB* 25 MG PO SCH (08:07)
[2016-10-10] MEDS: Omeprazole CAP* 20 MG PO SCH (08:08)
[2016-10-10] MEDS: Citalopram TAB* 20 MG PO SCH (08:08)
[2016-10-10] MEDS ORDERED: Influenza VAC *QUAD* 2016-17* 0.5 ML SYRINGE IM ONE (09:00)
--- NOTE | 2016-10-10 14:22 | PN ---
Subjective Date of Service: 10/10/16 Interval History: Pt is feeling well currently. He stats that he is nervous about how people have been talking about his pauses, HR and desaturation study. Objective Active Medications: Acetaminophen (Tylenol Tab*) 650 mg PO Q4H PRN PRN Reason: FEVER/PAIN Last Admin: 10/08/16 18:18 Dose: 650 mg Citalopram Hydrobromide (Celexa Tab*) 20 mg PO DAILY [facility] Last Admin: 10/10/16 08:08 Dose: 20 mg Hydrochlorothiazide (Hydrodiuril Tab*) 25 mg PO DAILY [facility] Last Admin: 10/10/16 08:07 Dose: 25 mg Omeprazole (Prilosec Cap*) 40 mg PO DAILY@0730 [facility] Last Admin: 10/10/16 08:08 Dose: 40 mg Phenytoin Sodium (Dilantin Cap(*)) 30 mg PO BEDTIME [facility] Last Admin: 10/09/16 20:49 Dose: 30 mg Phenytoin Sodium (Dilantin Cap(*)) 300 mg PO BEDTIME [facility] Last Admin: 10/09/16 20:48 Dose: 300 mg Valsartan (Diovan Tab*) 320 mg PO DAILY [facility] Last Admin: 10/10/16 08:07 Dose: 320 mg Vital Signs 10/09/16 10/09/16 10/09/16 15:42 20:00 20:04 Temperature 98.0 F 98.2 F Pulse Rate 125 114 Respiratory 18 18 16 Rate Blood Pressure 159/108 162/103 (mmHg) O2 Sat by Pulse 96 94 Oximetry 10/09/16 10/10/16 10/10/16 23:52 02:38 07:09 Temperature 97.1 F 97.0 F 98.0 F Pulse Rate 129 103 131 Respiratory 16 16 20 Rate Blood Pressure 147/105 148/101 136/115 (mmHg) O2 Sat by Pulse 96 93 97 Oximetry 10/10/16 10/10/16 10/10/16 08:00 11:05 14:00 Temperature 99.1 F Pulse Rate 102 Respiratory 18 20 21 Rate Blood Pressure 135/85 (mmHg) O2 Sat by Pulse 95 Oximetry Oxygen Devices in Use Now: None Appearance: Morbidly obese middle aged male sitting up on the edge of the bed talking with a friend, NAD Eyes: No Scleral Icterus Ears/Nose/Mouth/Throat: Mucous Membranes Moist Respiratory: Symmetrical Chest Expansion and Respiratory Effort, Clear to Auscultation Cardiovascular: NL Sounds; No Murmurs; No JVD, - - irregularly irregular, mildly tachycardic Abdominal: NL Sounds; No Tenderness; No Distention Extremities: No Clubbing, Cyanosis Skin: No Rash or Ulcers, No Nodules or Sclerosis Neurological: Alert and Oriented x 3 Result Diagrams: 10/09/16 07:55 10/09/16 07:55 Additional Lab and Data: . Diagnostic Imaging: CXR - NAD Tele - atrial flutter, rate 100-130 bpm, one 2.3 sec pause Echo - LVEF 40-45%, mild to mod RV dysfunction Assess/Plan/Problems-Billing Mr Maynard is a 56 yo M with a PMHx of HTN and morbid obesity who presents with new onset atrial flutter. - Patient Problems (1) Atrial flutter Current Visit: Yes Status: Acute Code(s): I48.92 - UNSPECIFIED ATRIAL FLUTTER SNOMED Code(s): 0405853 Comment: The patient had a 7.3 second pause early this AM. Stop metoprolol per Dr. Perera. Plan for evaluation for pacer tomorrow with Dr. Wilson. VAUGHN is likely contributing though can not do sleep study while inpatient. Hold xarelto tonight for anticipated pacer tomorrow. Transfer to ICU for closer monitoring of pauses. (2) Diastolic CHF, acute Current Visit: Yes Status: Acute Code(s): I50.31 - ACUTE DIASTOLIC ( CONGESTIVE) HEART FAILURE SNOMED Code(s): 213575876 Comment: Likely related to rapid afib. His EF is 40-45%. Pt appears euvolemic. Monitor fluid status. (3) Morbid obesity Current Visit: Yes Status: Acute Code(s): E66.01 - MORBID (SEVERE) OBESITY DUE TO EXCESS CALORIES SNOMED Code(s): 569019693 Comment: Encourage diet/exercise. (4) HTN (hypertension) Current Visit: Yes Status: Acute Code(s): I10 - ESSENTIAL (PRIMARY) HYPERTENSION SNOMED Code(s): 22825203 Comment: Continue valsartan and HCTZ. BP has been moderately elevated so will add amlodipine 5mg daily. Once the patient has a pacemaker he will need Bblocker added back. (5) VAUGHN (obstructive sleep apnea) Current Visit: Yes Status: Acute Code(s): G47.33 - OBSTRUCTIVE SLEEP APNEA ( ADULT) (PEDIATRIC) SNOMED Code(s): 02922813 Comment: The patient's nocturnal study showed significant desaturations >3h of desaturation. He qualifies for noctural O2. Will repeat the study on 2L to see if it improves. (6) DVT prophylaxis Current Visit: Yes Status: Acute Code(s): TXI0197 - SNOMED Code(s): 362903795 Comment: giovani (7) Full code status Current Visit: Yes Status: Acute Code(s): Z78.9 - OTHER SPECIFIED HEALTH STATUS SNOMED Code(s): 672593963 Status and Disposition: .
--- NOTE | 2016-10-10 19:58 | PTEDU ---
Patient Name: ANGE MOTA ANGE MOTA selected video: Pacemakers to view on 10/10/2016 at 7:57:02 PM from [id number]
[2016-10-10] MEDS: Phenytoin CAP(*) 100 MG CAP.ER PO SCH (20:32)
[2016-10-10] MEDS: PHENYTOIN 30 MG PO SCH (20:32)
--- NOTE | 2016-10-10 22:39 | CONS ---
PULMONARY CONSULTATION REPORT: DATE OF CONSULT: 10/10/16 CONSULTATION REQUESTED BY: Dr. Blackwood. REASON FOR CONSULT: Evaluation of sleep apnea. HISTORY OF PRESENT ILLNESS: The patient is a 56-year-old obese male with a history of seizure disorder, hypertension, prostate cancer, ITP, admitted for evaluation of shortness of breath and tachycardia and was found to have new- onset atrial flutter. The patient is being evaluated for pacemaker placement. Pulmonary/Sleep consultation was requested for evaluation of underlying sleep apnea. The patient was seen and examined at bedside. The patient's is at bedside. The patient's reports history of loud snoring, gasping arousals, witnessed apneas at night. The patient also reports disruptive sleep and gasping arousals at night. He wakes up unrefreshed and also reports daytime fatigue and sleepiness. The patient reports sleep complaints have been gradually worsening over the past few years. The patient reports slight improvement in shortness of breath since admission. He lives at home with his girlfriend. He has mild lower extremity edema. He denies any chest pain at this time. PAST MEDICAL HISTORY: 1. Hypertension. 2. Seizure disorder. 3. History of prostate cancer, status post prostatectomy. 4. ITP. 5. New-onset atrial flutter this admission. PAST SURGICAL HISTORY: 1. Splenectomy. 2. Prostatectomy. MEDICATIONS AT HOME: 1. Lexapro. 2. Metoprolol. 3. Nifedipine. 4. Benicar. 5. Omeprazole. 6. Dilantin. FAMILY HISTORY: Maternal grandmother with coronary artery disease. SOCIAL HISTORY: No history of smoking. Occasional alcohol intake. No drug abuse. 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 REVIEW OF SYSTEMS: All 14 systems were reviewed and as per HPI. PHYSICAL EXAM: Morbidly obese male sitting in the bed, in no apparent distress. Vital Signs: Temperature 98, pulse 131 beats per minute, respiratory rate 20 per minute, O2 sat 97% on room air, blood pressure 136/50. HEENT: Pupils equal, reactive to light. Mucous membranes moist. Mallampati class IV airway. Tonsils normal. Neck: Supple. No JVD. Respiratory: Clear to auscultation. No wheezes or crackles. Cardiovascular: S1, S2 present. Tachycardia present, regular. No murmurs, gallops, or rubs. Abdomen: Obese. Bowel sounds present. Nontender, nondistended. Extremities: Trace edema to the ankles. Skin: No rash or bruises. Neuro: No focal deficits. DIAGNOSTIC STUDIES/LAB DATA: WBC count 11.9, RBC 4.51, hemoglobin 13.3, hematocrit 41, platelet count 246. Sodium 139, potassium 4.3, chloride 104, bicarb 28, BUN 14. Troponin is within normal limits. CRP 16.58. Procalcitonin less than 0.1. Chest x-ray was personally reviewed by me - no acute air space opacities. No pleural effusion. Pulse oximetry showed significant hypoxemia with SpO2 hang of 56% with desaturation index of 51.7 per hour. IMPRESSION AND RECOMMENDATIONS: 56-year-old obese male with new-onset atrial flutter with tachycardia. Beta blockers and calcium channel blockers were discontinued due to 5-second pause while sleeping. The patient to have pacemaker placed this admission. Echocardiogram showed reduced LV function. The patient with high suspicion for sleep apnea with evidence of significant hypoxemia on overnight oximetry. Will schedule the patient for sleep study. Sleep study was discussed in detail. Pathophysiology of sleep apnea was discussed in detail. Consequences of untreated sleep apnea and interventions for management of sleep apnea were discussed. Will schedule for a home sleep test next week. Thank you for allowing me to participate in the care of your patient. Will follow up with you. [id number]/[facility] #: [id number] [place]
--- NOTE | 2016-10-11 00:01 | PN ---
Progress Note - Progress Note Note: Patient continuing to desat despite NC at 6L - will order CPAP tonight for his untreated VAUGHN.
[2016-10-11 05:49] LABS: Hematocrit 44 % (42-52); Hemoglobin 14.3 g/dl (14.0-18.0); Mean Corpuscular HGB Conc 33 g/dl (31-36); Mean Corpuscular Hemoglobin 30 pg (27-31); Mean Corpuscular Volume 92 fL (80-94); Mean Platelet Volume 10 um3 (7.4-10.4); Red Cell Distribution Width 15 % (10.5-15); White Blood Count 12.8 10^3/ul (3.5-10.8)
[2016-10-11 06:05] LABS: BUN/Creatinine Ratio 23.1 (8-20); Calcium 8.9 mg/dL (8.6-10.3); EGFR African American 164.6 (>60)
[2016-10-11] MEDS: Valsartan TAB* 160 MG PO SCH (09:22)
[2016-10-11] MEDS: Omeprazole CAP* 20 MG PO SCH (09:22)
[2016-10-11] MEDS: Citalopram TAB* 20 MG PO SCH (09:22)
[2016-10-11] MEDS: Hydrochlorothiazide TAB* 25 MG PO SCH (09:22)
[2016-10-11] MEDS ORDERED: Enoxaparin(*) 150 MG/ML 1 ML SYRINGE SUBCUT ONE (11:00)
[2016-10-11] MEDS ORDERED: Lidocaine 2% PF * 5 ML VIAL ONE (13:08)
[2016-10-11] MEDS ORDERED: KETAMINE HCL* 50 MG/ML 10 ML VIAL ONE (13:08)
[2016-10-11] MEDS ORDERED: Ondansetron INJ* 2 MG/ML VIAL ONE (13:08)
[2016-10-11] MEDS ORDERED: Propofol* 10 MG/ML 20 ML BTL IV PUSH ONE (13:08)
[2016-10-11] MEDS ORDERED: Midazolam* 1 MG/ML 5 ML VIAL (5 MG) ONE ×2 (13:08)
--- NOTE | 2016-10-11 16:01 | TEE ---
Patient: ANGE MOTA [facility] Rec#: [id number] : 1960 Date: 10/11/2016 Age: 56y Height: 187.96 cm / 74.0 in Weight: 159.21 kg / 350.9 lbs Sex: M BSA: 2.76 Room#: [facility] Type: Inpatient Referring: Jesus Wilson MD Performing: Jesus Wilson MD Reading: Jesus Wilson MD Emergency Room Physician: Fallon Salazar MANDO Nurse: Zara Dietrich RN CC: Anne Marie Augustine MD CC: GONZALO MCCALL Transesophageal Echocardiogram Indication: A-fib/flutt BP: 141/112 HR: 130 Rhythm: A-Fib Findings History: Morbid obesity,VAUGHN,a-flutter,HTN,seizures. Technical Comments: The study quality is good. Left Ventricle: The left ventricular chamber size is normal. Moderate global hypokinesis of the left ventricle is observed. There is moderately decreased left ventricular systolic function. The estimated ejection fraction is 35-40%. Left Atrium: The left atrium is mildly dilated. There is no thrombus visualized in the left atrial appendage. Right Ventricle: The right ventricular global systolic function is mildly to moderately reduced. Right Atrium: The right atrium is moderately dilated. There is no patent foramen ovale visualized. A patent foramen ovale is not demonstrated with color Doppler and agitated contrast. Aortic Valve: The aortic valve is trileaflet. There is no evidence of aortic regurgitation. There is no evidence of aortic stenosis. Mitral Valve: The mitral valve leaflets appear normal. There is mild to moderate mitral regurgitation. There is no evidence of mitral stenosis. Tricuspid Valve: The tricuspid valve leaflets are normal. There is trace tricuspid regurgitation. Unable to estimate the right ventricular systolic pressure. There is no tricuspid stenosis. Pulmonic Valve: The pulmonic valve appears normal. There is no evidence of pulmonic regurgitation. There is no pulmonic stenosis. Pericardium: The pericardium appears normal. Aorta: There is mild dilatation of the ascending aorta. There is moderate dilatation of the aortic root. Pulmonary Artery: The main pulmonary artery appears normal. Venous: The bicaval view was obtained and appears normal. MULU Procedures: The patient was placed in an upright position. Sedation administered by the anesthesiologist in the operating room. Please see Dr. Harrell' notes. An oral bite block was inserted for protection of oral dentition. The multiplane transesophageal echocardiogram probe was inserted through the posterior oropharynx and advanced into the esophagus without difficulty. Multiple 2D images were obtained of the heart and its related structures. Color flow Doppler was used for evaluation. Spectral Doppler was also used. The atrial septum was interrogated with color flow Doppler. At the conclusion of the procedure the probe was removed with continuous suction without complications. The patient tolerated the procedure with no apparent complications. Conclusions Moderate global hypokinesis of the left ventricle is observed. There is moderately decreased left ventricular systolic function. The estimated ejection fraction is 35-40%. There is no patent foramen ovale visualized. A patent foramen ovale is not demonstrated with color Doppler and agitated contrast. There is no thrombus visualized in the left atrial appendage. There is no evidence of aortic regurgitation. There is mild to moderate mitral regurgitation. There is trace tricuspid regurgitation. Unable to estimate the right ventricular systolic pressure. The pericardium appears normal. There is mild dilatation of the ascending aorta. Measurements Name Value Normal Range Aortic Annulus 2.2 cm (1.4 - 2.6) Ao root diameter (2D) 4.1 cm (2.1 - 3.5) Ascending Ao 3.5 cm (2.1 - 3.4) Name Value Normal Range MV E-wave Vmax 1 m/sec - MV deceleration time 112 msec -
--- NOTE | 2016-10-11 16:53 | PN ---
Subjective Date of Service: 10/11/16 Interval History: Pt is feeling well post cardioversion. He questions if he should stay out of work for a week to get to appts and get CPAP set up. We discussed waiting until tomorrow to see if he remains in NSR despite having severe sleep apnea overnight. He states he slept better last night than he has been despite still having significant desaturations still. He also noted that he is now coughing up some tannish sputum. Objective Active Medications: Acetaminophen (Tylenol Tab*) 650 mg PO Q4H PRN PRN Reason: FEVER/PAIN Last Admin: 10/08/16 18:18 Dose: 650 mg Apixaban (Eliquis*) 5 mg PO BID [facility] Citalopram Hydrobromide (Celexa Tab*) 20 mg PO DAILY [facility] Last Admin: 10/11/16 09:22 Dose: 20 mg Hydrochlorothiazide (Hydrodiuril Tab*) 25 mg PO DAILY [facility] Last Admin: 10/11/16 09:22 Dose: 25 mg Omeprazole (Prilosec Cap*) 40 mg PO DAILY@0730 [facility] Last Admin: 10/11/16 09:22 Dose: 40 mg Phenytoin Sodium (Dilantin Cap(*)) 30 mg PO BEDTIME [facility] Last Admin: 10/10/16 20:32 Dose: 30 mg Phenytoin Sodium (Dilantin Cap(*)) 300 mg PO BEDTIME [facility] Last Admin: 10/10/16 20:32 Dose: 300 mg Valsartan (Diovan Tab*) 320 mg PO DAILY [facility] Last Admin: 10/11/16 09:22 Dose: 320 mg Vital Signs 10/10/16 10/10/16 10/10/16 16:59 17:00 17:02 Temperature Pulse Rate 138 137 Respiratory 24 Rate Blood Pressure (mmHg) O2 Sat by Pulse 94 94 Oximetry 10/10/16 10/10/16 10/10/16 17:08 17:46 18:00 Temperature Pulse Rate 138 137 Respiratory 24 Rate Blood Pressure 118/88 132/104 (mmHg) O2 Sat by Pulse 93 94 Oximetry 10/10/16 10/10/16 10/10/16 19:00 20:00 20:01 Temperature 97.4 F Pulse Rate 138 Respiratory 16 16 Rate Blood Pressure 137/85 142/87 (mmHg) O2 Sat by Pulse 93 Oximetry 10/10/16 10/10/16 10/10/16 21:00 22:00 22:07 Temperature Pulse Rate 133 Respiratory 18 21 Rate Blood Pressure 110/91 (mmHg) O2 Sat by Pulse 94 Oximetry 10/10/16 10/10/16 10/10/16 22:18 22:20 22:33 Temperature Pulse Rate 123 Respiratory 20 Rate Blood Pressure 161/116 154/114 (mmHg) O2 Sat by Pulse 91 Oximetry 10/10/16 10/10/16 10/11/16 23:00 23:54 00:00 Temperature 98.0 F Pulse Rate 106 108 Respiratory 13 15 19 Rate Blood Pressure 142/88 (mmHg) O2 Sat by Pulse 91 80 Oximetry 10/11/16 10/11/16 10/11/16 00:01 00:02 01:00 Temperature Pulse Rate 107 103 117 Respiratory 18 15 18 Rate Blood Pressure 174/89 154/85 146/106 (mmHg) O2 Sat by Pulse 83 87 96 Oximetry 10/11/16 10/11/16 10/11/16 01:49 02:00 03:00 Temperature Pulse Rate 82 110 Respiratory 18 19 26 Rate Blood Pressure 128/93 144/103 (mmHg) O2 Sat by Pulse 95 96 Oximetry 10/11/16 10/11/16 10/11/16 04:00 05:00 05:01 Temperature 97.2 F Pulse Rate 93 80 58 Respiratory 20 17 22 Rate Blood Pressure 138/97 150/105 (mmHg) O2 Sat by Pulse 91 87 81 Oximetry 10/11/16 10/11/16 10/11/16 06:00 06:56 07:00 Temperature Pulse Rate 81 66 110 Respiratory 22 12 15 Rate Blood Pressure 155/123 130/80 123/102 (mmHg) O2 Sat by Pulse 86 89 87 Oximetry 10/11/16 10/11/16 10/11/16 08:00 09:00 10:00 Temperature 97.9 F Pulse Rate 102 137 Respiratory 23 22 24 Rate Blood Pressure 148/104 141/112 117/86 (mmHg) O2 Sat by Pulse 84 92 Oximetry 10/11/16 10/11/16 10/11/16 11:00 11:45 12:00 Temperature 97.4 F 97.3 F Pulse Rate Respiratory 16 27 Rate Blood Pressure 154/122 (mmHg) O2 Sat by Pulse Oximetry 10/11/16 10/11/16 10/11/16 12:21 13:00 13:27 Temperature Pulse Rate 140 134 132 Respiratory 19 25 19 Rate Blood Pressure 133/80 146/103 152/103 (mmHg) O2 Sat by Pulse 92 93 99 Oximetry 10/11/16 10/11/16 10/11/16 13:30 13:33 13:36 Temperature Pulse Rate 130 130 130 Respiratory 25 24 30 Rate Blood Pressure 142/90 146/98 175/128 (mmHg) O2 Sat by Pulse 97 99 97 Oximetry 10/11/16 10/11/16 10/11/16 13:39 13:42 13:45 Temperature Pulse Rate 129 133 128 Respiratory 18 22 24 Rate Blood Pressure 181/140 172/121 165/96 (mmHg) O2 Sat by Pulse 96 99 98 Oximetry 10/11/16 10/11/16 10/11/16 13:51 13:54 13:57 Temperature Pulse Rate 119 113 108 Respiratory 24 22 19 Rate Blood Pressure 160/119 164/111 174/105 (mmHg) O2 Sat by Pulse 83 99 100 Oximetry 10/11/16 10/11/16 10/11/16 14:00 14:03 14:05 Temperature Pulse Rate 114 113 111 Respiratory 21 24 21 Rate Blood Pressure 152/81 141/96 142/99 (mmHg) O2 Sat by Pulse 99 98 98 Oximetry 10/11/16 10/11/16 10/11/16 14:15 14:30 14:45 Temperature Pulse Rate 107 104 101 Respiratory 18 15 25 Rate Blood Pressure 141/99 147/103 132/87 (mmHg) O2 Sat by Pulse 97 97 97 Oximetry 10/11/16 10/11/16 15:00 16:00 Temperature 98.7 F Pulse Rate Respiratory 20 Rate Blood Pressure (mmHg) O2 Sat by Pulse Oximetry Oxygen Devices in Use Now: Nasal Cannula - 2L-97% Appearance: Middle aged male sitting up in bed, NAD Eyes: No Scleral Icterus Ears/Nose/Mouth/Throat: Mucous Membranes Moist Respiratory: Symmetrical Chest Expansion and Respiratory Effort, Clear to Auscultation Cardiovascular: NL Sounds; No Murmurs; No JVD, - - regular but slightly tachycardic, trace-1+ edema Abdominal: NL Sounds; No Tenderness; No Distention Extremities: No Clubbing, Cyanosis Skin: No Rash or Ulcers, No Nodules or Sclerosis Neurological: Alert and Oriented x 3 Result Diagrams: 10/11/16 05:30 10/11/16 05:30 Additional Lab and Data: . Microbiology and Other Data: Microbiology 10/10/16 14:50 Nasal Screen MRSA (PCR)(MATTHIAS) - Final Nasal Mrsa Negative Diagnostic Imaging: CXR - NAD Tele - atrial flutter, rate 100-130 bpm, one 2.3 sec pause Echo - LVEF 40-45%, mild to mod RV dysfunction Assess/Plan/Problems-Billing Mr Maynard is a 56 yo M with a PMHx of HTN and morbid obesity who presents with new onset atrial flutter. - Patient Problems (1) Atrial flutter Current Visit: Yes Status: Acute Code(s): I48.92 - UNSPECIFIED ATRIAL FLUTTER SNOMED Code(s): 4361405 Comment: The patient is s/p MULU guided cardioversion. Continue eliquis. Monitor in ICU. Will need aggressive treatment of his VAUGHN. (2) Diastolic CHF, acute Current Visit: Yes Status: Acute Code(s): I50.31 - ACUTE DIASTOLIC ( CONGESTIVE) HEART FAILURE SNOMED Code(s): 605884713 Comment: Likely related to rapid afib. His EF is 40-45%. Pt appears euvolemic. Monitor fluid status. (3) Morbid obesity Current Visit: Yes Status: Acute Code(s): E66.01 - MORBID (SEVERE) OBESITY DUE TO EXCESS CALORIES SNOMED Code(s): 707610522 Comment: Encourage diet/exercise. (4) HTN (hypertension) Current Visit: Yes Status: Acute Code(s): I10 - ESSENTIAL (PRIMARY) HYPERTENSION SNOMED Code(s): 29093934 Comment: BP remains elevated. I did not add amlodipine yesterday. Will add today to valsartan and HCTZ. (5) VAUGHN (obstructive sleep apnea) Current Visit: Yes Status: Acute Code(s): G47.33 - OBSTRUCTIVE SLEEP APNEA ( ADULT) (PEDIATRIC) SNOMED Code(s): 92197711 Comment: The patient was on CPAP last night and despite that he still had significant desaturations. Follow closely with Dr. De Guzman as an outpatient to get the sleep study set up. (6) DVT prophylaxis Current Visit: Yes Status: Acute Code(s): IEU9572 - SNOMED Code(s): 014912387 Comment: eliquis (7) Full code status Current Visit: Yes Status: Acute Code(s): Z78.9 - OTHER SPECIFIED HEALTH STATUS SNOMED Code(s): 447796317 Status and Disposition: .
[2016-10-11] MEDS: amLODIPine TAB* 5 MG PO SCH (18:15)
[2016-10-11] MEDS: Apixaban* 5 MG TAB PO SCH (20:37)
[2016-10-11] MEDS: Phenytoin CAP(*) 100 MG CAP.ER PO SCH (20:38)
[2016-10-11] MEDS: PHENYTOIN 30 MG PO SCH (20:38)
[2016-10-12] MEDS: Omeprazole CAP* 20 MG PO SCH (09:26)
[2016-10-12] MEDS: amLODIPine TAB* 5 MG PO SCH (09:26)
[2016-10-12] MEDS: Citalopram TAB* 20 MG PO SCH (09:27)
[2016-10-12] MEDS: Valsartan TAB* 160 MG PO SCH (09:27)
[2016-10-12] MEDS: Hydrochlorothiazide TAB* 25 MG PO SCH (09:27)
[2016-10-12] MEDS: Apixaban* 5 MG TAB PO SCH (09:27)
--- NOTE | 2016-10-12 10:59 | CARD ---
CARDIOVERSION REPORT: DATE OF PROCEDURE: 10/11/16 - ROOM #ICU-09 PROCEDURE: Cardioversion. INDICATION: Atrial flutter. The patient is a 56-year-old gentleman who was admitted to the hospital with atrial flutter. The patient was placed on rate control agents. The patient was having up to 7-second pauses with his severe sleep apnea. The patient had just undergone a transesophageal echocardiogram, which showed no evidence of thrombus in the left atrial appendages. No evidence of shunting. His ejection fraction was 35% with mild to moderate mitral regurgitation. Cardioversion was recommended. DESCRIPTION OF PROCEDURE: The patient had just undergone transesophageal echocardiogram. The patient was already sedated. The patient was cardioverted with 150 joules of synchronized biphasic energy. The patient quickly converted to normal sinus rhythm. There was no evidence of post-conversion pause. The patient tolerated the procedure well. There were no complications. CC: Dr. Anmol Perera* [id number]/CPS #: [id number] MTDD
[2016-10-12 13:54] VITALS: BP 136/90
--- NOTE | 2016-10-12 15:09 | DS ---
CC: Dr. Augustine; Dr. Perera; Dr. Wilson; Dr. De Guzman; Nicole Dyson NP, [facility] DISCHARGE SUMMARY: DATE OF ADMISSION: 10/07/16 DATE OF DISCHARGE: 10/12/16 PRIMARY CARE PROVIDER: Dr. Augustine. CONSULTING CARDIOLOGISTS: 1. Dr. Perera. 2. Dr. Wilson. CONSULTING OFFICE MACHINES WIRER: Dr. De Guzman. DISCHARGE DIAGNOSIS: 1. Atrial flutter status post cardioversion. 2. Acute diastolic congestive heart failure exacerbation, likely secondary to atrial flutter. 3. Obstructive sleep apnea. SECONDARY DIAGNOSES: 1. Hypertension. 2. Morbid obesity with BMI greater than 40. 3. Seizure disorder. 4. History of prostate cancer status post prostatectomy. 5. History of idiopathic thrombocytopenic purpura status post splenectomy. MEDICATIONS: 1. Lexapro 10 mg p.o. q.a.m. 2. Olmesartan/hydrochlorothiazide 40/25 mg 1 tablet p.o. in the morning. 3. Omeprazole 40 mg p.o. in the morning. 4. Phenytoin 330 mg p.o. at bedtime. Metoprolol and nifedipine were discontinued. New medications: 1. Amlodipine 5 mg p.o. daily. 2. Apixaban 5 mg p.o. b.i.d. HOSPITAL COURSE: Mr. Maynard is a 56-year-old male with the past medical history as stated above who presented to the emergency room with complaints of shortness of breath and tachycardia especially with activity. He was at a hockey game with the friend, had to climb a hill and developed severe palpitations and shortness of breath with that amount of activity but he saw that that had happened because it was really cold outside. For more details about his presentation, I refer you to his history and physical. In the emergency room, his EKG showed atrial flutter with the heart rate of 125 beats per minute and the patient was admitted for further evaluation and heart control. A transthoracic echocardiogram was performed and it showed an ejection fraction of 40% to 45% with mild global hypokinesis of the left ventricle. No prior echo to compare and the study was technically difficult due to body habitus. The patient was seen in consultation by Cardiology (Dr. Perera) and his initial recommendation was to increase metoprolol, Xarelto for anticoagulation and if the heart rate remained elevated, to add diltiazem CD. His electrolytes were corrected and he developed a 5-second pause while sleeping. His metoprolol was discontinued and he was observed to have sleep apnea while in the intensive care unit. Overnight oximetry was performed and the patient had an oxygen saturation greater than 90% for 52% of the time and the longest continued saturation less than 89 was for 5 minutes. The patient was seen in consultation by Pulmonology (Dr. De Guzman) and she agreed that the patient likely has sleep apnea and we will need sleep study as outpatient. The patient had a 7.3-second pause on October 10, metoprolol was discontinued and at that point, it was felt maybe he would need a pacemaker for possible tachy-alistair syndrome but then he was seen by Dr. Wilson and the impression was that his pulse could be associated with his severe sleep apnea, so the decision was made for MULU cardioversion that was performed by Dr. Wilson on 10/11/16. He was converted to sinus rhythm and was observed for 214 hours and had remained in sinus rhythm. I discussed the case with Cardiology (Dr. Wilson) and no antiarrhythmics are indicated at this point as we feel that his major issue is his sleep apnea. We are going to avoid chronotropic negative agents including metoprolol as outpatient, so he is going to be on amlodipine and his ARB for blood pressure control as outpatient and anticoagulation with Eliquis. He will need followup as outpatient with Dr. Perera. I contacted Dr. De Guzman and her recommendation is for the patient to be discharged on 6 L of oxygen overnight. She already made arrangements for him to have a home sleep study tomorrow night and she will make arrangements for CPAP after that, so we can minimize the time period that he will be off CPAP as outpatient. The patient also complains of lower extremity pain and weakness when he walks longer distances or when he has to climb many stairs suggestive of claudication. He will need workup for this as outpatient after his Cardiology and Pulmonology workup is completed. The patient was also advised to follow at the [facility] as weight loss is paramount for his health at this point. The patient was thought to be medically stable for discharge at this time. He was advised about what symptoms should prompt his return to Emergency department , and also received education about Eliquis, especially about risk of bleeding and how to proceed in case it happens. PHYSICAL EXAMINATION: Vital Signs: Temperature 97.3, heart rate is 95 respiratory rate is 22, oxygen saturation is 94% on room air, blood pressure is 140/87. General: The patient is a morbidly obese middle-aged male sitting up in bed in no acute distress. CVS: Normal S1, S2. Regular rate and rhythm. Chest: Breath sounds present bilaterally with no added sounds. Abdomen is obese, soft. Bowel sounds are present. Extremities: No edema. Neuro: He is alert, awake, and oriented x3. Able to move all 4 extremities. DIET: Heart healthy diet. The patient was advised to avoid caffeine. ACTIVITY: As tolerated. He was advised to stay off work at least until October 19, so he can complete his sleep apnea workup and follow up with his primary care provider as outpatient before returning to work. He was advised to avoid excessive physical exertion at this point. STATUS WHILE IN THE HOSPITAL: Inpatient. DISPOSITION: To home. Please keep in mind that this is a summarized version of this patient's complex hospital stay. If you need more information, please feel free to call me at or please obtain the full medical records. TIME SPENT: Approximately 50 minutes were spent to complete this discharge. [id number]/CPS #: [id number] AL
--- NOTE | 2016-10-12 15:11 | PN ---
Progress Note - Progress Note SOAP: Subjective: Interested in working on weight loss after discharge from [facility] Objective: 56 year old male with a BMI 44.4 and the weight related comorbidities of obstructive sleep apnea and hypertension. He was admitted He reports a long history of previous weight loss attempts including structured programs and medical weight loss using medications. His was able to lose over 100 pounds following the [place] diet a few years ago but was not able to sustain that. He is currently at his heaviest weight and is considering bariatric surgery as one possible option. Medications Acetaminophen (Tylenol Tab*) 650 mg PO Q4H PRN PRN Reason: FEVER/PAIN Last Admin: 10/08/16 18:18 Dose: 650 mg Amlodipine Besylate (Norvasc Tab*) 5 mg PO DAILY [facility] Last Admin: 10/12/16 09:26 Dose: 5 mg Apixaban (Eliquis*) 5 mg PO BID [facility] Last Admin: 10/12/16 09:27 Dose: 5 mg Citalopram Hydrobromide (Celexa Tab*) 20 mg PO DAILY [facility] Last Admin: 10/12/16 09:27 Dose: 20 mg Hydrochlorothiazide (Hydrodiuril Tab*) 25 mg PO DAILY [facility] Last Admin: 10/12/16 09:27 Dose: 25 mg Omeprazole (Prilosec Cap*) 40 mg PO DAILY@0730 [facility] Last Admin: 10/12/16 09:26 Dose: 40 mg Phenytoin Sodium (Dilantin Cap(*)) 30 mg PO BEDTIME [facility] Last Admin: 10/11/16 20:38 Dose: 30 mg Phenytoin Sodium (Dilantin Cap(*)) 300 mg PO BEDTIME [facility] Last Admin: 10/11/16 20:38 Dose: 300 mg Valsartan (Diovan Tab*) 320 mg PO DAILY [facility] Last Admin: 10/12/16 09:27 Dose: 320 mg Vital Signs Temp Pulse Resp BP Pulse Ox 98 F 100 26 136/90 95 10/12/16 11:49 10/12/16 11:00 10/12/16 13:29 10/12/16 13:29 10/12/16 11:00 Current Active Problems Problem Status Onset Atrial flutter Acute DVT prophylaxis Acute Diastolic CHF, acute Acute Full code status Acute HTN (hypertension) Acute Leukocytosis Acute Morbid obesity Acute VAUGHN (obstructive sleep apnea) Acute Assessment: 1. Class 3 obesity 2. Obstructive sleep apnea 3. Hypertension Plan: Will follow up with [facility] for weight loss. Our office will contact him regarding follow up appointment
--- NOTE | 2016-10-12 17:10 | PN ---
Progress Note - Progress Note Note: Sleep/Pulm consult f/u note 10/12/16. Pt seen and examined at bedside. Pt reprots improvement in SOB, denies CP. Active Medications Generic Name Dose Route Start Last Admin Trade Name Freq PRN Reason Stop Dose Admin Acetaminophen 650 mg 10/07/16 17:52 10/08/16 18:18 Tylenol Tab* PO 650 mg Q4H PRN Administration FEVER/PAIN Amlodipine Besylate 5 mg 10/11/16 17:00 10/12/16 09:26 Norvasc Tab* PO 5 mg DAILY JOSE Administration Apixaban 5 mg 10/11/16 21:00 10/12/16 09:27 Eliquis* PO 5 mg BID JOSE Administration Citalopram Hydrobromide 20 mg 10/08/16 09:00 10/12/16 09:27 Celexa Tab* PO 20 mg DAILY JOSE Administration Hydrochlorothiazide 25 mg 10/09/16 15:00 10/12/16 09:27 Hydrodiuril Tab* PO 25 mg DAILY JOSE Administration Omeprazole 40 mg 10/08/16 07:30 10/12/16 09:26 Prilosec Cap* PO 40 mg DAILY@0730 JOSE Administration Phenytoin Sodium 30 mg 10/07/16 21:00 10/11/16 20:38 Dilantin Cap(*) PO 30 mg BEDTIME JOSE Administration Phenytoin Sodium 300 mg 10/07/16 21:00 10/11/16 20:38 Dilantin Cap(*) PO 300 mg BEDTIME JOSE Administration Valsartan 320 mg 10/08/16 09:00 10/12/16 09:27 Diovan Tab* PO 320 mg DAILY JOSE Administration Vital Signs Temp Pulse Resp BP Pulse Ox 98 F 100 26 136/90 95 10/12/16 11:49 10/12/16 11:00 10/12/16 13:29 10/12/16 13:29 10/12/16 11:00 Gen: Morbidly obese male in bed, NAD HEENT: No Scleral Icterus, Mucous Membranes Moist, MP-4 airway Respiratory: Symmetrical Chest Expansion and Respiratory Effort, Clear to Auscultation Cardiovascular: NL Sounds; No Murmurs; No JVD, regular but slightly tachycardic , trace-1+ edema Abdominal: NL Sounds; No Tenderness; No Distention Extremities: No Clubbing, Cyanosis Skin: No Rash or Ulcers, No Nodules or Sclerosis Neurological: Alert and Oriented x 3 Diagnostic Imaging: CXR - NAD Echo - LVEF 40-45%, mild to mod RV dysfunction I/R: Pt is a 56 yo Morbidly obese male with h/ of HTN with new onset atrial flutter, s/p cardioversion Pt with signficant hypoxia noted on overnight oximetry with suspicion for sleep apnea and possible OHS Pt scheduled for HST upon d/c All arrangements made Will intiate CPAP once dx established He is needing O2 with CPAP Might need BiPAP or AVASPS Will f/u as out pt Sleep study was discussed in detail c/w O2 supplementation until sleep study is done. D/w Dr Negron
== END 2016-10-12 13:41 | disposition home or self-care (01) | DRG 201 ==
LOC: ED 14:41 → ICU 17:27 → MEDTELE 20:05 → ICU 10-10 14:58
PROVIDERS: ADMIT Internal Medicine; ATTEND Internal Medicine
PROC: B246ZZ4 Ultrasonography of Right and Left Heart, Transesophageal (ICD-10-PCS; 2016-10-11)
PROC: 5A2204Z Restoration of Cardiac Rhythm, Single (ICD-10-PCS; principal; 2016-10-11 12:30)
DX: I48.92 Unspecified atrial flutter (principal); I50.31 Acute diastolic (congestive) heart failure; E83.42 Hypomagnesemia; Z68.42 Body mass index [BMI] 45.0-49.9, adult; I11.0 Hypertensive heart disease with heart failure; G47.33 Obstructive sleep apnea (adult) (pediatric); G40.909 Epilepsy, unspecified, not intractable, without status epilepticus; E66.01 Morbid (severe) obesity due to excess calories; E87.6 Hypokalemia; K21.9 Gastro-esophageal reflux disease without esophagitis; Z79.899 Other long term (current) drug therapy; Z85.46 Personal history of malignant neoplasm of prostate; Z82.49 Family history of ischemic heart disease and other diseases of the circulatory system; Z88.8 Allergy status to other drugs, medicaments and biological substances; Z82.3 Family history of stroke
CPT/HCPCS: 36415; 71010; 80048; 80053; 83605; 83735; 83880; 84145; 84443; 84484; 84520; 85025; 85027; 85379; 85610; 85730; 86140; 87040; 87641; 90686; 92960; 93005; 93306; 93312; 93325; 94660; 94762; 99221; A9270-GY; J1644; J1650; J1940; J2250; J2405; J2704; J3475

== ENCOUNTER 2017-01-28 07:14 | Emergency (ER) | payer BC ==
[2017-01-28 07:20] VITALS: BP 122/78
[2017-01-28] MEDS ORDERED: Tetan/Diph/Pertus SYR(Tdap)* 0.5 ML SYR(BOOSTRIX) use SYR IM ONE (07:36)
--- NOTE | 2017-01-28 07:43 | UC ---
Katerine Orosco Salem, scribed for Shefali Pittman MD on 01/28/17 at 0729 . Skin Complaint HPI - HPI Summary HPI Summary: Patient is a 57 y/o M who presents to the with swelling and drainage to the right forearm since yesterday s/p possible bug bite a few days ago. He reports two bug bites to RUE. States they were itchy and he was scratching them. States he applied warm soaks and it started to drain yesterday morning. States redness has spread some. He denies fever, chills, or nausea. Pt states that his last tetanus shot was 9-10 years ago. 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 PMHx of HTN, GERD, A Fib, and Epilepsy. Pt reports that he is on Eliquis for recent a fib and denies any negative reaction to abx. Patients medication reviewed this visit. - History of Current Complaint Chief Complaint: [facility] Time Seen by Provider: 01/28/17 07:22 Stated Complaint: BUG BITE Hx Obtained From: Patient Onset/Duration: Gradual Onset, Lasting Days, Still Present Skin Exposure Onset/Duration: Days Ago Timing: Constant Onset Severity: Moderate Current Severity: Moderate Location: Other - RUE. Character: Swelling, Pruritus Aggravating: Nothing Alleviating: Nothing Associated Signs & Symptoms: Positive: Negative Related History: Insect Bite/Sting - Allergy/Home Medications Allergies/Adverse Reactions: Allergies Allergy/AdvReac Type Severity Reaction Status Date / Time Adhesive Tape Allergy REDNESS, Verified 07/10/15 12:06 ITCHNESS Naproxen Allergy Hives/Diff. Verified 07/10/15 12:06 Breathing/I tching ENVIRONMENTAL Allergy Unknown Uncoded 07/10/15 12:06 Reaction Details nutrasweet Allergy Headache Uncoded 07/10/15 12:06 Review of Systems Constitutional: Negative Skin: Other - Bug bite, right arm. Pruritus and edema. Gastrointestinal: Negative All Other Systems Reviewed And Are Negative: Yes PMH/Surg Hx/FS Hx/Imm Hx Previously Healthy: No Cardiovascular History: Hypertension, Atrial Fibrillation GI/ History: Gastroesophageal Reflux Neurological History: Seizures - Surgical History Surgical History: Yes Surgery Procedure, Year, and Place: 2010 prostatectomy, 2009 bilat inguinal hernia repair, oral surgery, endoscopy - Family History Known Family History: Positive: Cardiac Disease Family History: No FHx of malignant hyperthermia. No FHx of anesthesia reaction - Social History Occupation: Employed Full-time Lives: Alone Alcohol Use: Rare Alcohol Amount: 2/3 beers/glass wine a month Substance Use Type: None Smoking Status (MU): Current Some Day Smoker Type: Cigarettes Amount Used/How Often: 2 CIGARS PER YEAR-OFF AND ON 30+ YEARS Household Exposure Type: Cigars - Immunization History Most Recent Influenza Vaccination: 2014 Most Recent Tetanus Shot: Unknown Most Recent Pneumonia Vaccination: 2014 Physical Exam Triage Information Reviewed: Yes Appearance: Well-Appearing, No Pain Distress, Well-Nourished Vital Signs: Initial Vital Signs Temp 97.9 F 01/28/17 07:16 Pulse 86 01/28/17 07:16 Resp 18 01/28/17 07:16 BP 122/78 01/28/17 07:16 Pulse Ox 100 01/28/17 07:16 Vital Signs Reviewed: Yes Eyes: Negative: Discharge ENT: Positive: Hearing grossly normal Neck exam: Normal Neck: Positive: Supple, Nontender, No Lymphadenopathy Respiratory: Positive: No respiratory distress, No accessory muscle use Cardiovascular: Positive: Pulses Normal, Other: - 2+ radial, ulna CBT < 2 sec Musculoskeletal Exam: Normal Musculoskeletal: Positive: Other: - + SLE + flex/ext elbow + pronate/supinate Neurological Exam: Normal Neurological: Positive: Alert, Other: - + thumb up, a ok, finger spread, finger cross Psychological Exam: Normal Skin: Positive: Other - right forearm - mid pt with 2x2 cm erythema, central drainage. No odor, No fluctuance, no discomfort Course/Dx - Course Course Of Treatment: Pt with wound to right forarm - increasing erythema and drainage yesterday. Pt states started as bug bite - itched. Pt without spleen - not otherwise immunocompromised. last tetanus 9-10 years. - warm soaks. - keflex. - wound care - monitoring. pt comfortable and in agreement with plan - Diagnoses Provider Diagnoses: early infected wound Discharge - Discharge Plan Condition: Stable Disposition: HOME Prescriptions: Cephalexin CAP* [Keflex CAP*] 500 mg PO TID #15 cap Patient Education Materials: Diphtheria/Acellular Pertussis/Tetanus Booster Vaccine (By injection), Wound Infection (ED) Referrals: Anne Marie Augustine MD [Primary Care Provider] - Additional Instructions: - Keep area clean - cover wound with a thin layer of antibiotic ointment (neosporin, poly sporin) and a antibiotic 2 times a day and bandaid - Take antibiotics as prescribed until gone - Monitor your wound for increased infection - reddness, red streaking, odor, drainage, pain, or any other questions or concerns -you received a tetanus shot today - you will likely have some arm achiness tomorrow- this is normal. Okay to take Tylenol as needed for discomfort. It is recommended you avoid Motrin (ibuprofen, advil) while taking your blood thinner - Contact your doctor or return with any questions or concerns The documentation as recorded by the Katerine potts Salem accurately reflects the service I personally performed and the decisions made by me, Shefali Pittman MD.
== END 2017-01-28 07:59 | disposition home or self-care (01) ==
LOC: UCEAST 07:14
DX: S50.911A Unspecified superficial injury of right forearm, initial encounter (principal); X58.XXXA Exposure to other specified factors, initial encounter; Y93.9 Activity, unspecified; Y92.9 Unspecified place or not applicable; Z23 Encounter for immunization; I48.91 Unspecified atrial fibrillation; I10 Essential (primary) hypertension; K21.9 Gastro-esophageal reflux disease without esophagitis; R56.9 Unspecified convulsions; Z90.49 Acquired absence of other specified parts of digestive tract; L08.9 Local infection of the skin and subcutaneous tissue, unspecified; Z88.6 Allergy status to analgesic agent; Z91.048 Other nonmedicinal substance allergy status; Z72.0 Tobacco use
CPT/HCPCS: 90471; 90715; 99212; G0463

== ENCOUNTER 2017-03-31 10:39 | Emergency (ER) | payer BC ==
[2017-03-31 11:06] VITALS: BP 141/93
[2017-03-31] MEDS ORDERED: Bacitracin OINTMENT* 1 TUBE TOPICAL ONE (11:24)
[2017-03-31] MEDS ORDERED: Cephalexin CAP* 500 MG PO ONE (11:24)
--- NOTE | 2017-03-31 12:03 | UC ---
Jairon Orosco Alfonso, scribed for Nano Joshi MD on 03/31/17 at 1118 . Cardiac HPI - HPI Summary HPI Summary: This patient is a 46 year old M presenting to [facility] with a chief complaint of mid sternal CP since 90 minutes ago. The CP began at rest, sitting. The patient rates the pain 5/10 in severity. Symptoms possibly aggravated by stress, coughing, and position change. Symptoms alleviated by nothing, although prefers to sit up to lying back. No GI issues reported. PMHx of atrial flutter. Pt is prescribed Eliquis. Patients medications reviewed this visit. Patients allergies reviewed this visit. - History of Current Complaint Chief Complaint: UCChestPain Stated Complaint: CHEST PAIN Hx Obtained From: Patient Onset/Duration: Sudden Onset, Lasting Minutes - 90 minutes, Still Present Timing: Constant Initial Severity: Moderate Current Severity: Moderate Chest Pain Location: Mid Sternal Aggravating: Position - and stress and coughing Alleviating: Nothing Associated Signs & Symptoms: Positive: SOB, Cough - Allergy/Home Medications Allergies/Adverse Reactions: Allergies Allergy/AdvReac Type Severity Reaction Status Date / Time Adhesive Tape Allergy REDNESS, Verified 03/31/17 10:44 ITCHNESS Naproxen Allergy Hives/Diff. Verified 03/31/17 10:44 Breathing/I tching ENVIRONMENTAL Allergy Unknown Uncoded 03/31/17 10:44 Reaction Details nutrasweet Allergy Headache Uncoded 03/31/17 10:44 PMH/Surg Hx/FS Hx/Imm Hx Previously Healthy: No - see hpi. + hx aflutter october 2016 s/p cardioversion. hx acute diast chf Cardiovascular History: Cardiac Disease, Congestive Heart Failure, Other - ef 35 -40% october 2016 Other Cardiovascular History: see above - Surgical History Surgical History: Yes Surgery Procedure, Year, and Place: 2010 prostatectomy, 2008 bilat inguinal hernia repair, oral surgery, endoscopy - Family History Known Family History: Positive: Cardiac Disease Family History: No FHx of malignant hyperthermia. No FHx of anesthesia reaction - Social History Alcohol Use: Weekly Alcohol Amount: 2/3 beers/glass wine a month Substance Use Type: None Smoking Status (MU): Former Smoker Type: Cigarettes Amount Used/How Often: 2 CIGARS PER YEAR-OFF AND ON 30+ YEARS Household Exposure Type: Cigars - Immunization History Most Recent Influenza Vaccination: 2015 Most Recent Tetanus Shot: Unknown Most Recent Pneumonia Vaccination: 2015 Review of Systems Constitutional: Negative Skin: Negative Eyes: Negative ENT: Negative Respiratory: Shortness Of Breath, Cough Cardiovascular: Chest Pain Gastrointestinal: Negative, Other - Increased thirst. Genitourinary: Negative, Frequency Motor: Negative Neurovascular: Negative Musculoskeletal: Negative Neurological: Negative Psychological: Negative All Other Systems Reviewed And Are Negative: Yes Physical Exam Triage Information Reviewed: Yes Appearance: Well-Nourished, Obese Vital Signs: Initial Vital Signs Temp 98.7 F 03/31/17 10:46 Pulse 100 03/31/17 10:46 Resp 20 03/31/17 10:46 BP 141/93 03/31/17 10:46 Pulse Ox 100 03/31/17 10:46 Vital Signs Reviewed: Yes Eye Exam: Normal ENT Exam: Normal Neck exam: Normal Neck: Positive: No Lymphadenopathy Respiratory Exam: Normal Respiratory: Positive: Lungs clear, Normal breath sounds, No respiratory distress, No accessory muscle use, Other: - no dyspnea, no tachypnea, normal respiratory rate Cardiovascular Exam: Normal Cardiovascular: Positive: RRR, No Murmur, Pulses Normal, Brisk Capillary Refill , Other: - good general skin color, good capillary refill Abdominal Exam: Normal Abdomen Description: Positive: Nontender, Soft Bowel Sounds: Positive: Present Musculoskeletal Exam: Normal Musculoskeletal: Positive: Strength Intact, ROM Intact - grossly intact, Edema @ - mild edema ble with + venous insuff changes apparent. feet warm to touch. Neurological Exam: Normal Neurological: Positive: Other: - nonfocal, grossly intact Psychological Exam: Normal - conversing easily and appropriately. appropriately anxious. Psychological: Positive: Age Appropriate Behavior Skin Exam: Normal - nondiaphoretic. good skin color. Skin: Positive: Other - no visible or reported rash Diagnostics - EKG Cardiac Rate: NL - BPM 93 Cardiac Rhythm: Sinus: Normal - Abnormal R-wave progression, AK 174, and QTc 447. - Assessment/Plan Course Of Treatment: declines asa, on blood thinner (eliquist). IV saline lock ordered, he may receive ntg once established. Not yet established at time of ems transfer. This patient is a 46 year old M presenting to [facility] with a chief complaint of mid sternal CP since 90 minutes ago. The CP began at rest. The patient rates the pain 5/10 in severity. PMHx of atrial flutter. Pt is prescribed Eliquis. Patients medications reviewed this visit. Patients allergies reviewed this visit. An EKG reveals NSR, abnormal R-wave progression , AK 174, and QTc 447. . Patient will be transferred by ambulance to [facility] for further work up and management. The patient is agreeable with this plan. D/ w Dr. Fierro ED - Clinical Impression Provider Diagnoses: Chest pain Discharge - Discharge Plan Condition: Stable Disposition: [facility] Referrals: Anne Marie Augustine MD [Primary Care Provider] - The documentation as recorded by the Jairon potts Alfonso accurately reflects the service I personally performed and the decisions made by , Nano Joshi MD.
== END 2017-03-31 11:35 | disposition short-term general hospital (02) ==
LOC: UCEAST 10:39
DX: R07.89 Other chest pain (principal); R06.02 Shortness of breath; R05 Cough; Z88.6 Allergy status to analgesic agent; Z91.048 Other nonmedicinal substance allergy status; Z90.79 Acquired absence of other genital organ(s); Z87.891 Personal history of nicotine dependence
CPT/HCPCS: 93005; 99213; A9270-GY; G0463

== ENCOUNTER 2017-03-31 12:00 | Emergency (ER) | payer BC ==
[2017-03-31 12:28] LABS: Hematocrit 42 % (42-52); Hemoglobin 13.8 g/dl (14.0-18.0); Mean Corpuscular HGB Conc 33 g/dl (31-36); Mean Corpuscular Hemoglobin 30 pg (27-31); Mean Corpuscular Volume 89 fL (80-94); Mean Platelet Volume 10 um3 (7.4-10.4); Red Blood Count 4.68 10^6/ul (4.0-5.4); Red Cell Distribution Width 15 % (10.5-15); White Blood Count 10.5 10^3/ul (3.5-10.8)
[2017-03-31] MEDS ORDERED: NS 0.9% 1000 ML* 1,000 ML IV SCH (12:30)
[2017-03-31 12:40] LABS: Albumin 4.1 g/dL (3.2-5.2); BUN/Creatinine Ratio 19.7 (8-20); C Reactive Protein 20.21 mg/L (< 5.00); Calcium 9.2 mg/dL (8.6-10.3); EGFR African American 176.5 (>60); EGFR Non-African American 137.2 (>60); Globulin 3.4 g/dL (2-4); Magnesium 1.9 mg/dL (1.9-2.7); Potassium 3.3 mmol/L (3.5-5.0); Total Bilirubin 0.2 mg/dL (0.2-1.0); Total Protein 7.5 g/dL (6.4-8.9)
[2017-03-31] MEDS ORDERED: Nitroglycerin TAB 0.4 MG* 0.4 MG TAB SL ONE (12:42)
--- NOTE | 2017-03-31 12:46 | RAD ---
INDICATION: Chest pain. COMPARISON: Comparison is made with prior chest x-ray study from October 07, 2016. TECHNIQUE: A portable view of the chest was obtained. FINDINGS: Cardiac and mediastinal contours appear to be within normal limits. The lungs are clear. No pleural effusion is seen. IMPRESSION: NO EVIDENCE FOR ACUTE DISEASE.
[2017-03-31] MEDS ORDERED: Iohexol 350* (CONTRAST) 500 ML MDV IV ONE (12:48)
[2017-03-31 12:49] LABS: TSH (Thyroid Stimulating Horm) 2.24 mcIU/mL (0.34-5.60)
[2017-03-31 13:23] LABS: Urine Bacteria Absent (Absent); Urine Bilirubin Negative (Negative); Urine Glucose Negative (Negative); Urine Nitrite Negative (Negative)
--- NOTE | 2017-03-31 13:24 | RAD ---
INDICATION: Mid chest pain. History of prostate cancer. COMPARISON: March 31, 2017 chest radiograph. TECHNIQUE: Multidetector CT images were obtained from the lung apices to the upper abdomen with 88 mL Omnipaque 350 IV contrast. Pulmonary angiogram protocol. Multiplanar reformation including with maximum intensity projection. REPORT: Aside from mild dependent subsegmental atelectasis the lungs and pleural spaces are clear. Negative for pneumothorax. Upper normal size range 0.9 cm short axis subcarinal lymph node. 0.8 cm short axis prevascular lymph node. Negative for thoracic lymphadenopathy based on short axis size criteria. Negative for cardiomegaly or pericardial effusion. Normal diameter thoracic aorta. Negative for dissection of the thoracic aorta. No filling defects are identified from the main to the subsegmental pulmonary arteries to indicate presence of a pulmonary embolism. Unremarkable Limited images through the upper abdomen. Negative for suspicious thoracic osseous lesions. IMPRESSION: 1. No evidence for pulmonary embolism. 2. Minimal bibasilar dependent atelectasis.
[2017-03-31 15:08] LABS: Erythrocyte Sed Rate 44 mm/Hr (0-20)
[2017-03-31 16:05] VITALS: BP 154/100
[2017-03-31] MEDS ORDERED: HYDROcodone/ACETAMIN 5-325 MG* 1 TAB PO ONE (16:06)
--- NOTE | 2017-03-31 16:15 | ED ---
Ernesto Orosco Rebecca, scribed for Steve Smart MD on 03/31/17 at 1221 . HPI Chest Pain - HPI Summary HPI Summary: Pt is a 57 y/o M BIBA referred from [facility] who presents to ED c/o midsternal CP. Pain began at 0930 this morning, initially intermittent and associated with deep breaths, and now constant. Pain radiates to the back and radiates to the shoulders and neck, though he reports that feels muscular. Pain is currently moderate, ranked 5/10. While en route to [facility] ED, pt was administered 324 mg ASA and 1x NTG. Sx aggravated by deep breaths, bumps in the road, cough, moving in bed and walking, alleviated slightly by EMS Tx. Additionally c/o mild SOB secondary to pain. Denies nausea, diaphoresis, edema and calf pain. Pt reports recent respiratory illness for the past few days. PMHx HTN, HLD, A Fib - Dx in October. Last echocardiogram was in October of this year and last stress test was November of this year. SHx former smoker - last had a cigar in fall of last year. - History of Current Complaint Chief Complaint: EDChestPainROMI Time Seen by Provider: 03/31/17 12:05 Hx Obtained From: Patient Onset/Duration: Started Hours Ago, Still Present Time of Onset: 09:30 Timing: Constant - Now constant, Intermittent - Initially associated with deep breaths Current Severity: Moderate Pain Intensity: 4 Pain Scale Used: 0-10 Numeric Chest Pain Location: Mid Sternal Chest Pain Radiates: Yes Chest Pain Radiates To:: Back, Shoulder - Muscular, Neck - Muscular Aggravating Factor(s): Movement, Deep Breaths, Other: - Walking Alleviating Factor(s): EMS Tx Associated Signs and Symptoms: Positive: Shortness of Breath - mild, secondary to pain. Negative: Diaphoresis, Nausea, Edema - Additional Pertinent History Primary Care Physician: [id number] - Allergy/Home Medications Allergies/Adverse Reactions: Allergies Allergy/AdvReac Type Severity Reaction Status Date / Time Adhesive Tape Allergy REDNESS, Verified 03/31/17 10:44 ITCHNESS Naproxen Allergy Hives/Diff. Verified 03/31/17 10:44 Breathing/I tching ENVIRONMENTAL Allergy Unknown Uncoded 03/31/17 10:44 Reaction Details nutrasweet Allergy Headache Uncoded 03/31/17 10:44 Home Medications: Home Medications Escitalopram (NF) [Lexapro 10 mg (NF)] 10 mg PO DAILY 03/31/17 [History Confirmed 03/31/17] Olmesartan Medoxomil-Hydrochlo [Olmesartan Medoxomil/Hydr 40-25 mg] 1 tab PO QAM 03/31/17 [History Confirmed 03/31/17] Simvastatin [Zocor 5 MG-] 5 mg PO DAILY 03/31/17 [History Confirmed 03/31/17] PMH/Surg Hx/FS Hx/Imm Hx Endocrine/Hematology History: Denies: Hx Diabetes Cardiovascular History: Reports: Hx Atrial Fibrillation, Hx Hypercholesterolemia , Hx Hypertension - on medication, Other Cardiovascular Problems/Disorders - SCARLET FEVER A CHILD Respiratory History: Reports: Hx Asthma, Hx Sleep Apnea - POSSIBLE BUT NEVER BEEN DIAGNOSED WITH, Other Respiratory Problems/Disorders - MONO A TEEN GI History: Reports: Hx Gastroesophageal Reflux Disease - ON MEDICATION FOR History: Reports: Other Problems/Disorders Sensory History: Reports: Hx Contacts or Glasses - GLASSES Opthamlomology History: Reports: Hx Contacts or Glasses - GLASSES Neurological History: Reports: Hx Migraine - MONTHLY - TREATS WITH TYLENOL AND CAFFEINE, Hx Seizures - EPILEPTIC- HAS NOT HAD A SEIZURE SINCE AGE 18 OR 19 Psychiatric History: Reports: Hx Anxiety, Hx Depression - ON MEDICATION FOR - Cancer History Cancer Type, Location and Year: prostate 2010 Hx Chemotherapy: Yes - Surgical History Surgery Procedure, Year, and Place: 2010 prostatectomy, 2008 bilat inguinal hernia repair, oral surgery, endoscopy Hx Anesthesia Reactions: No Infectious Disease History: No Infectious Disease History: Denies: Hx Clostridium Difficile, Hx Hepatitis, Hx Human Immunodeficiency Virus (HIV), Hx of Known/Suspected MRSA, Hx Shingles, Hx Tuberculosis, Hx Known/ Suspected VRE, Hx Known/Suspected VRSA, History Other Infectious Disease, Traveled Outside the [place] in Last 30 Days - Family History Known Family History: Positive: Cardiac Disease Family History: No FHx of malignant hyperthermia. No FHx of anesthesia reaction - Social History Alcohol Use: Weekly Alcohol Amount: 2/3 beers/glass wine a month Substance Use Type: Reports: None Smoking Status (MU): Former Smoker Type: Cigarettes Amount Used/How Often: 2 CIGARS PER YEAR-OFF AND ON 30+ YEARS Review of Systems Negative: Skin Diaphoresis Positive: Chest Pain - Midsternal with radiation to the back Positive: Shortness Of Breath - Mild secondary to pain Negative: Nausea Positive: Other - NEGATIVE: calf pain. Negative: Edema All Other Systems Reviewed And Are Negative: Yes Physical Exam - Summary Physical Exam Summary: General: well-appearing, no pain distress Skin: warm, color reflects adequate perfusion, dry Head: normal Eyes: EOMI, ARELIS ENT: normal Neck: supple, nontender Respiratory: CTA, breath sounds present Cardiovascular: RRR Abdomen: soft, nontender Bowel: present Musculoskeletal: normal, strength/ROM intact Neurological: normal, sensory/motor intact, A&O x3 Psychological: affect/mood appropriate Triage Information Reviewed: Yes Vital Signs On Initial Exam: Initial Vitals Temp Pulse Resp BP Pulse Ox 97.8 F 93 16 143/83 99 03/31/17 12:07 03/31/17 12:07 03/31/17 12:07 03/31/17 12:07 03/31/17 12:07 Vital Signs Reviewed: Yes - Leary Coma Scale Coma Scale Total: 15 Diagnostics - Vital Signs Vital Signs Temp Pulse Resp BP Pulse Ox 03/31/17 12:15 88 22 96 03/31/17 12:09 97.8 F 93 17 143/83 96 03/31/17 12:07 97.8 F 93 16 143/83 99 - Laboratory Lab Results: Lab Results 03/31/17 03/31/17 03/31/17 Range/Units 11:25 11:25 11:25 WBC 10.5 (3.5-10.8) 10^3/ul RBC 4.68 (4.0-5.4) 10^6/ul Hgb 13.8 L (14.0-18.0) g/dl Hct 42 (42-52) % MCV 89 (80-94) fL MCH 30 (27-31) pg MCHC 33 (31-36) g/dl RDW 15 (10.5-15) % Plt Count 199 (150-450) 10^3/ul MPV 10 (7.4-10.4) um3 Neut % (Auto) 62.7 (38-83) % Lymph % (Auto) 20.8 L (25-47) % Sandoval % (Auto) 13.5 H (1-9) % Eos % (Auto) 2.3 (0-6) % Baso % (Auto) 0.7 (0-2) % Absolute Neuts (auto) 6.6 (1.5-7.7) 10^3/ul Absolute Lymphs (auto) 2.2 (1.0-4.8) 10^3/ul Absolute Monos (auto) 1.4 H (0-0.8) 10^3/ul Absolute Eos (auto) 0.2 (0-0.6) 10^3/ul Absolute Basos (auto) 0.1 (0-0.2) 10^3/ul Absolute Nucleated RBC 0 10^3/ul Nucleated RBC % 0 ESR 44 H (0-20) mm/Hr INR (Anticoag Therapy) 1.01 (0.89-1.11) APTT 32.6 (26.0-36.3) seconds D-Dimer, Quantitative < 200 (Less Than 230) ng/mL Sodium 137 (133-145) mmol/L Potassium 3.3 L (3.5-5.0) mmol/L Chloride 102 (101-111) mmol/L Carbon Dioxide 29 (22-32) mmol/L Anion Gap 6 (2-11) mmol/L BUN 12 (6-24) mg/dL Creatinine 0.61 L (0.67-1.17) mg/dL Est GFR ( Amer) 176.5 (>60) Est GFR (Non-Af Amer) 137.2 (>60) BUN/Creatinine Ratio 19.7 (8-20) Glucose 112 H (70-100) mg/dL Lactic Acid (0.5-2.0) mmol/L Calcium 9.2 (8.6-10.3) mg/dL Magnesium 1.9 (1.9-2.7) mg/dL Total Bilirubin 0.20 (0.2-1.0) mg/dL AST 20 (13-39) U/L ALT 23 (7-52) U/L Alkaline Phosphatase 79 (34-104) U/L Total Creatine Kinase 79 (10-223) U/L CK-MB (CK-2) 1.8 (0.6-6.3) ng/mL Troponin I 0.00 (<0.04) ng/mL C-Reactive Protein 20.21 H (< 5.00) mg/L B-Natriuretic Peptide ( - 100) pg/mL Total Protein 7.5 (6.4-8.9) g/dL Albumin 4.1 (3.2-5.2) g/dL Globulin 3.4 (2-4) g/dL Albumin/Globulin Ratio 1.2 (1-3) Lipase 17 (11.0-82.0) U/L TSH 2.24 (0.34-5.60) mcIU/mL Urine Color Urine Appearance Urine pH (5-9) Ur Specific [place] (1.010-1.030) Urine Protein (Negative) Urine Ketones (Negative) Urine Blood (Negative) Urine Nitrate (Negative) Urine Bilirubin (Negative) Urine Urobilinogen (Negative) Ur Leukocyte Esterase (Negative) Urine WBC (Auto) (Absent) Urine RBC (Auto) (Absent) Urine Bacteria (Absent) Urine Glucose (Negative) 03/31/17 03/31/17 03/31/17 Range/Units 11:25 11:25 12:45 WBC (3.5-10.8) 10^3/ul RBC (4.0-5.4) 10^6/ul Hgb (14.0-18.0) g/dl Hct (42-52) % MCV (80-94) fL MCH (27-31) pg MCHC (31-36) g/dl RDW (10.5-15) % Plt Count (150-450) 10^3/ul MPV (7.4-10.4) um3 Neut % (Auto) (38-83) % Lymph % (Auto) (25-47) % Sandoval % (Auto) (1-9) % Eos % (Auto) (0-6) % Baso % (Auto) (0-2) % Absolute Neuts (auto) (1.5-7.7) 10^3/ul Absolute Lymphs (auto) (1.0-4.8) 10^3/ul Absolute Monos (auto) (0-0.8) 10^3/ul Absolute Eos (auto) (0-0.6) 10^3/ul Absolute Basos (auto) (0-0.2) 10^3/ul Absolute Nucleated RBC 10^3/ul Nucleated RBC % ESR (0-20) mm/Hr INR (Anticoag Therapy) (0.89-1.11) APTT (26.0-36.3) seconds D-Dimer, Quantitative (Less Than 230) ng/mL Sodium (133-145) mmol/L Potassium (3.5-5.0) mmol/L Chloride (101-111) mmol/L Carbon Dioxide (22-32) mmol/L Anion Gap (2-11) mmol/L BUN (6-24) mg/dL Creatinine (0.67-1.17) mg/dL Est GFR ( Amer) (>60) Est GFR (Non-Af Amer) (>60) BUN/Creatinine Ratio (8-20) Glucose (70-100) mg/dL Lactic Acid 1.1 (0.5-2.0) mmol/L Calcium (8.6-10.3) mg/dL Magnesium (1.9-2.7) mg/dL Total Bilirubin (0.2-1.0) mg/dL AST (13-39) U/L ALT (7-52) U/L Alkaline Phosphatase (34-104) U/L Total Creatine Kinase (10-223) U/L CK-MB (CK-2) (0.6-6.3) ng/mL Troponin I (<0.04) ng/mL C-Reactive Protein (< 5.00) mg/L B-Natriuretic Peptide 23 ( - 100) pg/mL Total Protein (6.4-8.9) g/dL Albumin (3.2-5.2) g/dL Globulin (2-4) g/dL Albumin/Globulin Ratio (1-3) Lipase (11.0-82.0) U/L TSH (0.34-5.60) mcIU/mL Urine Color Yellow Urine Appearance Clear Urine pH 6.0 (5-9) Ur Specific [place] 1.013 (1.010-1.030) Urine Protein Negative (Negative) Urine Ketones Negative (Negative) Urine Blood 1+ H (Negative) Urine Nitrate Negative (Negative) Urine Bilirubin Negative (Negative) Urine Urobilinogen Negative (Negative) Ur Leukocyte Esterase Negative (Negative) Urine WBC (Auto) Trace(0-5/hpf) (Absent) Urine RBC (Auto) Trace(0-2/hpf) (Absent) Urine Bacteria Absent (Absent) Urine Glucose Negative (Negative) 03/31/17 Range/Units 15:15 WBC (3.5-10.8) 10^3/ul RBC (4.0-5.4) 10^6/ul Hgb (14.0-18.0) g/dl Hct (42-52) % MCV (80-94) fL MCH (27-31) pg MCHC (31-36) g/dl RDW (10.5-15) % Plt Count (150-450) 10^3/ul MPV (7.4-10.4) um3 Neut % (Auto) (38-83) % Lymph % (Auto) (25-47) % Sandoval % (Auto) (1-9) % Eos % (Auto) (0-6) % Baso % (Auto) (0-2) % Absolute Neuts (auto) (1.5-7.7) 10^3/ul Absolute Lymphs (auto) (1.0-4.8) 10^3/ul Absolute Monos (auto) (0-0.8) 10^3/ul Absolute Eos (auto) (0-0.6) 10^3/ul Absolute Basos (auto) (0-0.2) 10^3/ul Absolute Nucleated RBC 10^3/ul Nucleated RBC % ESR (0-20) mm/Hr INR (Anticoag Therapy) (0.89-1.11) APTT (26.0-36.3) seconds D-Dimer, Quantitative (Less Than 230) ng/mL Sodium (133-145) mmol/L Potassium (3.5-5.0) mmol/L Chloride (101-111) mmol/L Carbon Dioxide (22-32) mmol/L Anion Gap (2-11) mmol/L BUN (6-24) mg/dL Creatinine (0.67-1.17) mg/dL Est GFR ( Amer) (>60) Est GFR (Non-Af Amer) (>60) BUN/Creatinine Ratio (8-20) Glucose (70-100) mg/dL Lactic Acid (0.5-2.0) mmol/L Calcium (8.6-10.3) mg/dL Magnesium (1.9-2.7) mg/dL Total Bilirubin (0.2-1.0) mg/dL AST (13-39) U/L ALT (7-52) U/L Alkaline Phosphatase (34-104) U/L Total Creatine Kinase (10-223) U/L CK-MB (CK-2) (0.6-6.3) ng/mL Troponin I 0.00 (<0.04) ng/mL C-Reactive Protein (< 5.00) mg/L B-Natriuretic Peptide ( - 100) pg/mL Total Protein (6.4-8.9) g/dL Albumin (3.2-5.2) g/dL Globulin (2-4) g/dL Albumin/Globulin Ratio (1-3) Lipase (11.0-82.0) U/L TSH (0.34-5.60) mcIU/mL Urine Color Urine Appearance Urine pH (5-9) Ur Specific [place] (1.010-1.030) Urine Protein (Negative) Urine Ketones (Negative) Urine Blood (Negative) Urine Nitrate (Negative) Urine Bilirubin (Negative) Urine Urobilinogen (Negative) Ur Leukocyte Esterase (Negative) Urine WBC (Auto) (Absent) Urine RBC (Auto) (Absent) Urine Bacteria (Absent) Urine Glucose (Negative) Result Diagrams: 03/31/17 11:25 03/31/17 11:25 Lab Statement: Any lab studies that have been ordered have been reviewed, and results considered in the medical decision making process. - Radiology CXR Xray Interpretation: No Acute Changes - NO EVIDENCE FOR ACUTE DISEASE. ED physician reviewed this radiology report and agrees. Radiology Interpretation Completed By: Radiologist - CT Chest/Thorax CTA CT Interpretation: No Acute Changes - 1. No evidence for pulmonary embolism. 2. Minimal bibasilar dependent atelectasis. EDphysician reviewed this radiology report and agrees. CT Interpretation Completed By: Radiologist - EKG 1211 Cardiac Rate: NL - 90 bpm EKG Rhythm: Sinus Rhythm ST Segment: Normal Ectopy: None Re-Evaluation - Re-Evaluation First Eval Re-Evaluation Time: 13:41 Change: Unchanged Comment: NTG is not improving the sx. Explained that the hospitalist will evaluate the pt in the ED. Second Eval Re-Evaluation Time: 16:00 Comment: Discussed course of treatment with the pt. Chest Pain Course/Dx - Course Assessment/Plan: Pt is a 57 y/o M BIBA referred from [facility] who presents to ED c /o midsternal CP since 09 this morning. Pain radiates to the back and radiates to the shoulders and neck, though he reports that feels muscular. Pain is currently moderate, ranked 5/10. While en route to [facility] [place] [facility], pt was administered 324 mg ASA and 1x NTG. Sx aggravated by deep breaths, bumps in the road, cough, moving in bed and walking, alleviated slightly by EMS Tx. Additionally c/o mild SOB secondary to pain. Denies nausea, diaphoresis, edema and calf pain. Pt reports recent respiratory illness for the past few days. PMHx HTN, HLD, A Fib - Dx in October. Last echocardiogram was in October of this year and last stress test was November of this year. SHx former smoker - last had a cigar in fall of last year. Chest/thorax CTA reveals 1. No evidence for pulmonary embolism. 2. Minimal bibasilar dependent atelectasis and CXR reveals no acute findings. Elevated BP noted and advised to f/u with PCP. EKG is sinus rhythm with no STEMI and no ectopy. In the ED course, the pt was administered NTG and fluids. Discussed care of pt with Dr. Lizy May who will evaluate the pt in the ED. After evaluation by Chris Egan NP, he has decided to consult with the knowledge management consultant. After discussion with the knowledge management consultant, he advised a repeat troponin at 1500 and if that is negative, he can be discharged to home. Both troponins are 0.00. Elevated BP noted and advised to f/u with PCP. HOSPITALIST SAW PATIENT IN CONSULT. THEY DISCUSSED THE PATIENT WITH CARDIOLOGY, DR CASTLE. PATIENT HAD RECENT CARDIAC STRESS TEST THAT WAS NORMAL IN 11/22. PER DR CASTLE, IF SECOND TROPONIN NEGATIVE, PATIENT CAN BE DICHARGE TO HOME; F/U PMD; RETURN IF WORSE. THIS WAS ALL DISCUSSED WITH THE PATIENT. NO CRITICAL CARE TIME. - Diagnoses Provider Diagnoses: Chest pain - Provider Notifications Discussed Care Of Patient With: Lizy May Time Discussed With Above Provider: 13:35 Instructed by Provider To: Other - Discussed the case and made aware of the pt. After evaluation by Chris Egan NP, he has decided to consult with the knowledge management consultant. After discussion with the knowledge management consultant, he advised a repeat troponin at 1500 and if that is negative, he can be discharged to home. Discharge - Discharge Plan Condition: Stable Disposition: HOME Prescriptions: HYDROcodone/ACETAMIN 5-325 MG* [Aurora 5-325 TAB*] 1 tab PO Q6H PRN #12 tab MDD 4 PRN Reason: Pain Patient Education Materials: Chest Pain (ED) Referrals: Anne Marie Augustine MD [Primary Care Provider] - Additional Instructions: FOLLOW UP WITH YOUR DOCTOR. RETURN TO THE EMERGENCY DEPARTMENT FOR ANY WORSENING OF YOUR CONDITION; PAIN, SHORTNESS OF BREATH, YOU FEEL ILL, YOU FEEL LIKE PASSING OUT OR QUESTIONS OR CONCERNS. The documentation as recorded by the Ernesto potts Rebecca accurately reflects the service I personally performed and the decisions made by me, Steve Smart MD.
--- NOTE | 2017-03-31 20:03 | CONS ---
ATTENDING PHYSICIAN ADDENDUM NOW INCLUDED ON THIS REPORT CC: Dr. Augustine; Dr. Perera; Dr. Wilson * CONSULTATION REPORT: DATE OF CONSULT: 03/31/17 - EMERGENCY DEPT PRIMARY CARE PROVIDER: Dr. Augustine. ATTENDING PHYSICIAN WHILE IN THE HOSPITAL: Dr. Lizy May * (report dictated by William Egan NP). REQUESTING PHYSICIAN IN CONSULT: Dr. Smart. REASON FOR CONSULT: Medical evaluation for admission. CHIEF COMPLAINT: Chest pain. HISTORY OF PRESENT ILLNESS: Mr. Maynard is a 57-year-old male patient who recently was here in October, was then found to be in A-flutter, which is a new diagnosis for him. He underwent stress testing in November, which was benign. He went to Urgent Care earlier today, because he woke up this morning around 9 o' clock and he was having some chest discomfort, described as a grabbing discomfort in the center of his chest. Actually, it started in his back, went up into his chest, and into his shoulders. He had no associated shortness of breath, nausea, or diaphoresis. He said that he had been coughing and when he coughs, it felt worse. He also says that recently he was sick, he did have URI- type symptoms. He had a sore throat. He has been having a running nose, cough over the weekend, and last week on and Tuesday. No fevers or chills. He is concerned though because of the pain in his chest and his recent cardiac diagnosis of Aflutter, he felt they should be evaluated. He says that the pain got worse any time he went over a bump in the ambulance and he also said that it got worse when he had to put his arms over his head during CT scanner. He says that he is more comfortable when he sits forward and he says it is worse when he takes a deep breath. He says that the pain again was described as a grabbing pain and he says that he normally can walk half a mile and he has been doing this every day since the diagnosis of Aflutter and he has been doing well with this, he never gets chest pain or shortness of breath. He came into ER, was evaluated. There was concern for chest pain, we were asked to evaluate for admission. PAST MEDICAL HISTORY: Significant for: 1. Aflutter. 2. Hypertension. 3. Seizures. 4. Prostate cancer. 5. ITP. 6. VAUGHN. 7. Hyperlipidemia. PAST SURGICAL HISTORY: He has had: 1. Splenectomy. 2. Prostatectomy. 3. hernia repair. MEDICATIONS: Home meds include: 1. Norvasc 5 mg daily. 2. Dilantin 330 mg at bedtime. 3. Prilosec 40 mg daily. 4. Benicar/hydrochlorothiazide 1 tablet p.o. daily. 5. Lexapro 10 mg day. 6. Apixaban 5 mg p.o. b.i.d. ALLERGIES TO MEDICATIONS: Include NAPROXEN. FAMILY HISTORY: Mother had history of lung cancer. Father had lung cancer. SOCIAL HISTORY: Does not smoke. Does not drink. His surrogate decision maker is his ex-girlfriend, Temi. REVIEW OF SYSTEMS: There is no documented fever. No significant weight changes. There was no double vision. He denies having any ear discharge. There was rhinorrhea, but it is now gone. There was sore throat, but again now it is subsiding. He does admit to having a cough, but it is improved. Denies having any orthopnea or dyspnea on exertion. He did admit to having chest discomfort, that was positional. He denies having any abdominal pain or any nausea or vomiting. There is no dysuria, no frequency. There was no seizure and no loss of consciousness. Review of 14 systems completed, all others negative. PHYSICAL EXAM: General: At this time, Mr. Maynard is a 57-year-old male patient. He is sitting in the ER stretcher. He does not appear to be in any acute distress. Vital Signs: Reveal blood pressure 137/93, pulse is 99, respirations 20, O2 sat 95%, temperature 97.8. HEENT: Head atraumatic. Eyes: EOMs are intact. Sclerae anicteric and not pale. Throat: Oral mucosa appears to be moist. No oropharyngeal erythema. Neck: Supple. Lungs: Clear to auscultation bilaterally. No wheezes, rales, or rhonchi. Heart: Sounds S1 and S2. Regular rate and rhythm. No murmurs, rubs, or gallops. Abdomen: Soft. It was flat. Nontender. Bowel sounds present. Extremities: Pulses were 2+ throughout. Able to move all 4 extremities with 5/5 strength. Neurologic: The patient is awake. He is alert. He is oriented x3. His surplus property disposal agent were equal. No gross focal deficits. Skin: Intact. DIAGNOSTIC STUDIES/LAB DATA: Labs today revealed a WBC of 10.5, RBC of 4.68, hemoglobin of 13.8, hematocrit of 42, platelet count of 199. INR was 1.0, PTT of 32, D-dimer less than 200. Sodium was 137, potassium 3.3, chloride 102, bicarb 29, BUN 12, creatinine 0.61, glucose 112, lactate 1.1, calcium 9.2, mag 1.9. Total bili 0.2, AST 20, ALT 23, alk phos 79. CK 79, CK-MB 1.8. Troponin 0. CRP was 20. Albumin of 4.1. TSH of 2.24. Urine showed 1+ blood. He had a chest thorax CTA, which revealed no evidence for PE, minimal bibasilar - dependent atelectasis. Chest x-ray obtained today, showed no evidence of acute disease. There was an EKG obtained today, which showed a normal sinus rhythm, rate of 90 , no ST elevations or T-wave inversions were noted. Old medical records were reviewed. I did review the stress echo by his horse identifier, which showed a negative exercise EKG echo for inducible ischemia in excess of target heart rate and this was done on 11/22/16, approximately 4 months ago. Medical records were reviewed. ASSESSMENT AND PLAN: Mr. Maynard is a 57-year-old male patient coming in today with complaints with chest pain, we were asked to evaluate in consult. Recommendations at this point: 1. Chest pain: At this point, I would recommend a second troponin, I do not think he needs another stress test, he just had one 4 months ago and the pain is reproducible. It is worse when he puts his arms over his head, also it gets better when he leans forward. Certainly differential is wide here, it could be costochondritis, could be pericarditis, although there is no EKG finding for pericarditis. We touched base with on-call Cardiology today and we both felt that an echo was not warranted at this point, we going to hold off on colchicine. I did recommend the patient getting some Tylenol as needed for pain and to follow up with his primary horse identifier this week for further evaluation. I think with the second troponin, if it is negative, he should be ruled out and if it is positive, then obviously we will keep him in the hospital. We would recommend checking an ESR. 2. Atrial flutter. Continue meds as prescribed. 3. Obstructive sleep apnea. Continue his CPAP. 4. Hyperlipidemia. Continue his atorvastatin. 5. Seizure. Continue his meds as prescribed. 6. Prostate cancer. He can follow with his primary. DISPOSITION: The patient is to be discharged home. I did discuss the case in detail with my attending, Dr. May; she was in agreement. I also discussed the case with Dr. Smart as well and he was in agreement. WILLIAM EGAN NP ADDENDUM: DATE OF CONSULTATION: 03/31/17 Alton Maynard is a 57-year-old male with a diagnosis of atrial flutter on Eliquis who presents with chest pain. His chest pain is better when sitting up. It is likely related to pericarditis. His initial troponin is negative. The plan for the patient is to obtain a second troponin. If that is negative, the patient will likely be discharged home with recommendation to take Tylenol on an as needed basis for pain. For further details of the patient's consultation, please see consultation report dictated by William Egan on 03/31/17. LIZY MAY MD [id number]/[facility] #: [id number] Daniel [id number]/CPS #: [id number] [place]
--- NOTE | 2017-03-31 20:44 | CONS ---
CONSULTATION NOTE: ADDENDUM: DATE OF CONSULTATION: 03/31/17 Alton Maynard is a 57-year-old male with a diagnosis of atrial flutter on Eliquis, who presents with chest pain. His chest pain is better when sitting up. It is likely related to pericarditis. His initial troponin is negative. The plan for the patient is to obtain a second troponin. If that is negative, the patient will likely be discharged home with recommendation to take Tylenol on an as needed basis for pain. For further details of the patient's consultation, please see consultation report dictated by William Egan on 03/31/17. [id number]/[facility] #: [id number] MTDD
== END 2017-03-31 16:26 | disposition home or self-care (01) ==
LOC: ED 12:00
DX: R07.9 Chest pain, unspecified (principal); R06.02 Shortness of breath; Z87.891 Personal history of nicotine dependence
CPT/HCPCS: 36415; 71010; 71275; 80053; 81003; 81015; 82550; 82553; 83605; 83690; 83735; 83880; 84443; 84484; 85025; 85379; 85610; 85652; 85730; 86140; 93005; 99283; A9270-GY; Q9967

== ENCOUNTER 2018-04-24 08:57 | Emergency (ER) | payer BC ==
[2018-04-24] MEDS ORDERED: NS 0.9% 1000 ML* 1,000 ML IV ONE (09:08)
[2018-04-24] MEDS ORDERED: Diltiazem IV* 5 MG/ML 5 ML VIAL (for loading dose/IV Push) (25 MG) IV SLOW PU ONE (09:22)
[2018-04-24 09:24] LABS: ABS Basophils 0.1 10^3/ul (0-0.2); ABS Eosinophils 0.2 10^3/ul (0-0.6); ABS Lymphocytes 1.5 10^3/ul (1.0-4.8); ABS Monocytes 1.1 10^3/ul (0-0.8); ABS Neutrophils 4.3 10^3/ul (1.5-7.7); ABS Nucleated RBC 0 10^3/ul; Eosinophil % 2.9 % (0-6); Hematocrit 44 % (42-52); Hemoglobin 14.4 g/dl (14.0-18.0); Lymphocyte % 20.3 % (25-47); Mean Corpuscular HGB Conc 33 g/dl (31-36); Mean Corpuscular Hemoglobin 30 pg (27-31); Mean Corpuscular Volume 89 fL (80-94); Mean Platelet Volume 9.6 um3 (7.4-10.4); Nucleated Red Blood Cells % 0.1; Platelet Count 208 10^3/ul (150-450); Red Blood Count 4.88 10^6/ul (4.00-5.40); Red Cell Distribution Width 15 % (10.5-15); White Blood Count 7.2 10^3/ul (3.5-10.8)
--- NOTE | 2018-04-24 09:25 | ED ---
HPI Cardiac - HPI Summary HPI Summary: Patient is a 58 y/o M w/ c/o aflutter. Patient went to see his PCP this morning for SOB and palpations; PCP sent him to ED as he was in rapid aflutter. He notes that he was at [facility] [place] flutter before. In the room, he denies chest pain but notes some SOB. In the room, pulse is 117, 99 o2, 140/103 BP. Patient reports he is on Eliquis but states he has not taken it today nor any other medications. On triage, pain is denied and nothing is noted to aggravate/alleviate Sx. Home medications and allergies reviewed. PMHx of hypertension, morbid obesity, leukocytosis, diastolic CHF, and obstructive sleep apnea is noted. - History of Current Complaint Chief Complaint: EDDysrhythmPalp Stated Complaint: IRREGULAR HEARBEAT Time Seen by Provider: 04/24/18 09:07 Hx Obtained From: Patient Onset/Duration: Started Hours Ago - aflutter was noticed at PCP this morning Timing: Constant Current Severity: None - pain denied Pain Intensity: 0 Pain Scale Used: 0-10 Numeric - 0/10 Aggravating Factor(s): Nothing Alleviating Factor(s): Nothing Associated Signs and Symptoms: Positive: Shortness of Breath - some, Palpitations, Other: - aflutter. Negative: Chest Pain - Additional Pertinent History Primary Care Physician: BETY - Allergy/Home Medications Allergies/Adverse Reactions: Allergies Allergy/AdvReac Type Severity Reaction Status Date / Time Adhesive Tape Allergy REDNESS, Verified 03/31/17 10:44 ITCHNESS MS Naproxen [Naproxen] Allergy Hives/Diff. Verified 03/31/17 10:44 Breathing/I tching ENVIRONMENTAL Allergy Unknown Uncoded 03/31/17 10:44 Reaction Details nutrasweet Allergy Headache Uncoded 03/31/17 10:44 Home Medications: Home Medications Olmesartan/Hydrochlorothiazide [Olmesartan Medoxomil/Hydr 40-25 mg] 1 tab PO QAM 04/24/18 [History Confirmed 04/24/18] Simvastatin TAB(NF) [Zocor(NF)] 5 mg PO DAILY 04/24/18 [History Confirmed ] lamoTRIgine TAB(*) [LaMICtal TAB(*)] 100 mg PO BID 04/24/18 [History Confirmed 04/24/18] PMH/Surg Hx/FS Hx/Imm Hx Endocrine/Hematology History: Denies: Hx Diabetes Cardiovascular History: Reports: Hx Atrial Fibrillation, Hx Hypercholesterolemia , Hx Hypertension - on medication, Other Cardiovascular Problems/Disorders - SCARLET FEVER A CHILD Respiratory History: Reports: Hx Asthma, Hx Sleep Apnea - POSSIBLE BUT NEVER BEEN DIAGNOSED WITH, Other Respiratory Problems/Disorders - MONO A TEEN GI History: Reports: Hx Gastroesophageal Reflux Disease - ON MEDICATION FOR History: Reports: Other Problems/Disorders Sensory History: Reports: Hx Contacts or Glasses - GLASSES Opthamlomology History: Reports: Hx Contacts or Glasses - GLASSES Neurological History: Reports: Hx Migraine - MONTHLY - TREATS WITH TYLENOL AND CAFFEINE, Hx Seizures - EPILEPTIC- HAS NOT HAD A SEIZURE SINCE AGE 18 OR 19 Psychiatric History: Reports: Hx Anxiety, Hx Depression - ON MEDICATION FOR - Cancer History Cancer Type, Location and Year: prostate 2010 Hx Chemotherapy: Yes - Surgical History Surgery Procedure, Year, and Place: 2010 prostatectomy, 2008 bilat inguinal hernia repair, oral surgery, endoscopy Hx Anesthesia Reactions: No - Immunization History Immunizations Up to Date: Yes Infectious Disease History: No Infectious Disease History: Denies: Hx Clostridium Difficile, Hx Hepatitis, Hx Human Immunodeficiency Virus (HIV), Hx of Known/Suspected MRSA, Hx Shingles, Hx Tuberculosis, Hx Known/ Suspected VRE, Hx Known/Suspected VRSA, History Other Infectious Disease, Traveled Outside the [place] in Last 30 Days - Family History Known Family History: Positive: Cardiac Disease Family History: No FHx of malignant hyperthermia. No FHx of anesthesia reaction - Social History Alcohol Use: Daily Alcohol Amount: 2/3 beers/glass wine a month Substance Use Type: Reports: None Smoking Status (MU): Former Smoker Type: Cigarettes Amount Used/How Often: 2 CIGARS PER YEAR-OFF AND ON 30+ YEARS Review of Systems Positive: Palpitations, Other - a flutter . Negative: Chest Pain Positive: Shortness Of Breath All Other Systems Reviewed And Are Negative: Yes Physical Exam - Summary Physical Exam Summary: VITAL SIGNS: Reviewed. GENERAL: Patient is a well-developed and obese male who is lying comfortable in the stretcher. Patient is not in any acute respiratory distress. HEAD AND FACE: No signs of trauma. No ecchymosis, hematomas or skull depressions. No sinus tenderness. EYES: PERRLA, EOMI x 2, No injected conjunctiva, no nystagmus. EARS: Hearing grossly intact. Ear canals and tympanic membranes are within normal limits. MOUTH: Oropharynx within normal limits. NECK: Supple, trachea is midline, no adenopathy, no JVD, no carotid bruit, no c- spine tenderness, neck with full ROM. CHEST: Symmetric, no tenderness at palpation LUNGS: Clear to auscultation bilaterally. No wheezing or crackles. CVS: irregular rate and rhythm, S1 and S2 present, no murmurs or gallops appreciated. ABDOMEN: Soft, non-tender. No signs of distention. No rebound no guarding, and no masses palpated. Bowel sounds are normal. EXTREMITIES: FROM in all major joints, no edema, no cyanosis or clubbing. NEURO: Alert and oriented x 3. No acute neurological deficits. Speech is normal and follows commands. SKIN: Dry and warm Triage Information Reviewed: Yes Vital Signs On Initial Exam: Initial Vitals Temp Pulse Resp BP Pulse Ox 97.3 F 111 20 140/103 97 04/24/18 09:00 04/24/18 09:00 04/24/18 09:00 04/24/18 09:00 04/24/18 09:00 Vital Signs Reviewed: Yes Diagnostics - Vital Signs Vital Signs Temp Pulse Resp BP Pulse Ox 04/24/18 09:00 97.3 F 111 20 140/103 97 - Laboratory Result Diagrams: 04/24/18 09:16 04/24/18 09:16 Lab Statement: Any lab studies that have been ordered have been reviewed, and results considered in the medical decision making process. - Radiology CXR Xray Interpretation: No Acute Changes Radiology Interpretation Completed By: Radiologist - no evidence for acute intrathoracic disease; this report was reviewed by ED physician. - EKG 0905 Cardiac Rate: Other Rate - a flutter rate of 99 BPM EKG Rhythm: Atrial Flutter EKG Interpretation: no ST elevations Re-Evaluation - Re-Evaluation First Eval Re-Evaluation Time: 11:31 Comment: Discussed plan to admit patient to [facility]; he understands and is agreeable with this plan. Second Eval Re-Evaluation Time: 12:25 Comment: Patient updated that Dr. Wilson will come to ED to perform cardioversion. Third Eval Re-Evaluation Time: 13:30 Change: Improved Comment: Cardioversion was successful, patient will be discharged to home and follow up with Dr. Perera. Patient understands and agrees with this plan. Disposition - Course Assessment/Plan: This patient is a 58-year-old male who presents to the emergency department with a chief complaint of having occasional shortness of breath and palpitations. Patient has past medical history of atrial flutter currently taking Eliquis , hypertension, morbid obesity, leukocytosis, diastolic CHF, and obstructive sleep apnea. He was sent from the primary care physicians office after he went for a regular checkup with a chief complaint of having some shortness of breath and occasional palpitations. As per PCP the patient is atrial flutter with RVR. Initially the patient is lying comfortable in the stretcher, with no acute distress. Blood work without any significant abnormality, Except for magnesium 1.8. She was given magnesium PO. Chest x- ray without any significant abnormality. EKG showed aflutter with rate of [address] elevation. The patient was given 1 dose of Cardizem 10 mg and now the heart rate is ranging between 70-80 BPM. I discussed case with Dr. Perera from cardiology and he requests for the patient to be admitted to the hospital services for possible cardioversion. I also discussed case with Dr. May for accepted the patient for admission. After the patient was accepted for admission Dr. May discussed the case with Dr. Wilson from cardiology and actually he went to the cardioversion in the ER and we will discharge the patient home with follow-up with Dr. Perera. After the cardioversion the patient now is alert and oriented 3 Dr. Wilson requested for the patient to be discharged. - Differential Dx - Cardiopulmonary Differential Diagnoses - Cardiopulmonary: Atrial Fibrillation, Atrial Flutter, Paroxysmal SVT, Paroxysmal VT - Diagnoses Provider Diagnoses: Atrial flutter - Physician Notifications Discussed Care Of Patient With: Anmol Perera Time Discussed With Above Provider: 11:21 Instructed by Provider To: Other - 1121 -- Dr. Perera was consulted on patient. Dr. Perera wants patient to be admitted for possible cardioversion. 1134 -- Dr. May was consulted on patient's case. She agrees to accept patient for admission to [facility]. 1216 -- Dr. Wilson was contact by JESSIE Fofana who states that he will be sent down to perform cardioversion on patient in ED. Once completed, patient can be discharged to home. 1317 -- Dr. Wilson states cardioversion was successful and he will be discharged. Discharge - Sign-Out/Discharge Documenting (check all that apply): Patient Departure - discharge - Discharge Plan Condition: Stable Disposition: HOME Patient Education Materials: Atrial Flutter (ED), Moderate Sedation (ED), Cardioversion (DC) Referrals: Anne Marie Augustine MD [Primary Care Provider] - Anmol Perera MD [Medical Doctor] - 1 Week Additional Instructions: DISCHARGE INSTRUCTIONS CARDIOVERSION You have had an Elective Cardioversion under moderate sedation; follow up with Dr. Perera this week. Notify Physician if You Experience: * You feel like your heart is fluttering or jumping in your chest. This could mean the return of your arrhythmia. * Dizziness * Shortness of breath * Numbness, or arm/leg weakness * Difficulty with speech If you are unable to reach your physician, you should go to the nearest urgent care center or you should call 911. Phone Numbers: * [facility] ([facility]) [phone] * [facility] Offices: [facility] [phone]- Dr. Wilson, Dr. Perera, Dr. Quiñones, and Dr. Downey [place] [facility] [phone]- Dr. Mosher and Dr. [facility] [phone]- Dr. Jeff, Dr. Avery, and Dr. Ojeda Medications: * See Home Medication List in your discharge packet * If you are prescribed an anticoagulant or currently taking a blood thinner, please follow your physician's instructions carefully to help reduce the chances of complications. Blood thinners are extremely important in preventing blood clots sometimes caused by this arrhythmia. If you miss a dose, please call your physician's office. Activity: * You should rest for the remainder of the day because you may still feel the sedative effects of the medications given to you during the procedure. You may resume normal activity the following day. * Do not drive, operate heavy machinery, or make important decisions for 24 hours. * If you received monitored anesthesia care: You will receive additional instructions from an Anesthesiologist regarding recovery from anesthesia. Please follow these instructions carefully. * If you have sleep apnea, please use breathing apparatus while napping/ sleeping. Diet: * Resume usual diet * Do not consume any alcoholic beverages * Other: [] If you feel sick to your stomach, you may begin with clear liquids and add items as you feel ready. Lab Work: [] You do not require an additional lab draw [] See your discharge packet for additional lab work to be drawn Smoking: It is never too late to quit smoking if you smoke. This is one of the best things you can do to keep Coronary Artery Disease (CAD) from getting worse. Smoking: Reduces oxygen flow to your heart Speeds plaque buildup in the artery aponte Increases your risk for a heart attack Your Primary Care Physician can assist you in smoking cessation therapies/ treatments. You may also consider calling [facility] at Additional Instructions: [] If you have any questions that are not answered by these instructions, please call your physician's office. - Billing Disposition and Condition Condition: STABLE Disposition: Home - Attestation Statements Document Initiated by Babs: Yes Documenting Scribe: Casey Renee Provider For Whom Babs is Documenting (Include Credential): Levy Fleming MD Scribe Attestation: Casey Orosco , scribed for Levy Fleming MD on 04/25/18 at 0806. Scribe Documentation Reviewed: Yes Provider Attestation: The documentation as recorded by the Casey potts accurately reflects the service I personally performed and the decisions made by me, Levy Fleming MD
--- OUTSIDE RECORDS SUMMARY | 2018-04-24 09:30 | XMS REPORT ---
:1960 External Reference #:[id number] Author Organization [facility] Address [address] [place] [address] [place] [address] Phone [phone] Care Team Providers Name Role Phone Main Lam M.D. 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 Onset: 11/09/2016 Chest pain Anmol Perera M.D., [facility] PATEL Onset: 01/27/2017 Hypoxemia Sarah De Guzman MD Active Onset: 04/15/2017 Epilepsy Dianne Anderson MD Active Onset: 05/30/2017 Atrial flutter Anmol Perera M.D., Active [facility], PATEL Onset: 07/26/2017 Migraine without aura, not Dianne Anderson MD Active refractory Onset: Obstructive sleep apnea syndrome Active Family History Date Family Member(s) Problem(s) Comments General Cancer General Hypertension General Epilepsy General Heart Disease Father Paternal Grandfather of a stroke in his 50s Social History Type Date Description Comments Marital Status 2002 Lives With Alone Occupation Currently Working He is a 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 Cigarette Use Smokes 2 cigars per year Cigarette Use Never Smoked Cigarettes ETOH Use Occasionally consumes alcohol Smoking Patient has never smoked Recreational Drug Use Formerly used Marijuana Last used in his 40s but sporadically does not use drugs regularly at this time. Daily Caffeine Does Not Consume Caffeine Exercise Type/Frequency Exercises rarely Allergies, Adverse Reactions, Alerts Date Description Reaction Status Severity Comments 06/03/2015 Naproxen active 06/03/2015 Nutri Sweet active Medications Medication Date Status Form Strength Qnty SIG Indications Ordering Provider Lamotrigine 03/22/ Active Tablets 100mg 60tab 1 by mouth G40.909 [place] 2018 s twice a day Alexx Rust Hydrocodone-Ac 09/27/ Active Tablets 5-325mg 12tab 1 tablet by G43.009 Dianne Anderson etaminophen 2018 s mouth as MD needed for severe migraine Benicar HCT / Active Tablets 40-25mg 1 by mouth Unknown 0000 every day Eliquis / Active Tablets 5mg 60tab 1 by mouth Jesus Kim 0000 s twice a day Alexx Wilson Amlodipine / Active Tablets 5mg 30tab 1 by mouth Anmol Stoddard Besylate 0000 s every day Alexx Perera, FACC, FASNC Cpap / Active Device nightly Unknown 0000 Simvastatin / Active Tablets 20mg 1 by mouth Unknown 0000 every day Lamotrigine 01/18/ Hx Tablets 25mg 256ta 1 by mouth G40.909 Dianne Anderson , 2018 - bs every night 03/22/ x1 week 2018 then 1 twice a day x1 week then 1 in am and 2 in pm x1 week then as instructed to 4 2x/day Zonisamide 07/26/ Hx Capsules 100mg 90cap 3 by mouth G40.909 Dianne Anderson, 2017 - s every night 04/23/ at bedtime 2017 Dilantin / Hx Capsules 100mg take 3 Unknown 0000 - capsules by 09/27/ mouth a day 2018 Dilantin / Hx Capsules 30mg 1 by mouth Unknown 0000 - every day (with the 2018 100mg tabs) Escitalopram / Hx 10mg 1 po qd Unknown 0000 - 2017 Metoprolol // Hx Tablets 100mg 1 by mouth Unknown Succinate ER 0000 - ER 24HR every day 2016 Potassium /00/ Hx Tablets 10Meq 1 by mouth Unknown Chloride ER 0000 - ER every day 2016 Omeprazole / Hx Tablet 20mg 1 po qd Unknown 0000 - 2017 Nifedical XL / Hx Tablets 30mg 1 by mouth Unknown 0000 - ER 24HR every day 2016 Multi For Him / Hx Capsules 1 by mouth Unknown 0000 - every day 2017 Mabel Tea / Hx Occasional Unknown 0000 - 2017 Vital Signs Date Vital Result Comment 04/24/2018 Height 73 inches 6'1" Weight 307.50 lb Heart Rate 80 /min recheck 110, iregular BP Systolic Sitting 122 mmHg Lue large cuff BP Diastolic Sitting 80 mmHg Lue large cuff Respiratory Rate 12 /min O2 % BldC Oximetry 95 % BMI (Body Mass Index) 40.6 kg/m2 01/20/2018 Height 73 inches 6'1" Weight 301.31 lb Heart Rate 80 /min BP Systolic Sitting 124 mmHg Lue large cuff BP Diastolic Sitting 78 mmHg Lue large cuff Respiratory Rate 12 /min O2 % BldC Oximetry 95 % BMI (Body Mass Index) 39.7 kg/m2 01/18/2018 Height 73 inches 6'1" Weight 303.00 lb Heart Rate 76 /min BP Systolic 120 mmHg BP Diastolic 84 mmHg BMI (Body Mass Index) 40.0 kg/m2 09/27/2017 Height 73 inches 6'1" Weight 300.00 lb Heart Rate 68 /min BP Systolic 128 mmHg BP Diastolic 80 mmHg BMI (Body Mass Index) 39.6 kg/m2 07/26/2017 Height 73 inches 6'1" Weight 304.38 lb Heart Rate 76 /min BP Systolic Sitting 122 mmHg BP Diastolic Sitting 80 mmHg BMI (Body Mass Index) 40.2 kg/m2 05/30/2017 Height 73 inches 6'1" Weight 300.00 lb with shoes Heart Rate 86 /min BP Systolic Sitting 128 mmHg Rue lrg cuff BP Diastolic Sitting 70 mmHg Rue lrg cuff BP Systolic Standing 122 mmHg Rue lrg cuff BP Diastolic Standing 68 mmHg Rue lrg cuff Respiratory Rate 18 /min BMI (Body Mass Index) 39.6 kg/m2 Ejection Fraction 55-60% 05/24/2017-echo 04/15/2017 Height 73 inches 6'1" Weight 303.38 lb Heart Rate 78 /min BP Systolic 140 mmHg BP Diastolic 88 mmHg BMI (Body Mass Index) 40.0 kg/m2 01/27/2017 Height 73 inches 6'1" Weight 317.00 lb Heart Rate 86 /min BP Systolic Sitting 110 mmHg BP Diastolic Sitting 78 mmHg Respiratory Rate 16 /min O2 % BldC Oximetry 98 % room air BMI (Body Mass Index) 41.8 kg/m2 11/09/2016 Height 73 inches 6'1" Weight 343.00 lb Heart Rate 100 /min BP Systolic Sitting 138 mmHg Lue large cuff BP Diastolic Sitting 92 mmHg Lue large cuff BP Systolic Standing 132 mmHg Lue BP Diastolic Standing 92 mmHg Lue Respiratory Rate 16 /min BMI (Body Mass Index) 45.2 kg/m2 Ejection Fraction 40-45% 11/04/16 11/04/2016 Height 73 inches 6'1" Weight 343.00 lb Heart Rate 108 /min BP Systolic 128 mmHg BP Diastolic 88 mmHg Respiratory Rate 16 /min O2 % BldC Oximetry 97 % BMI (Body Mass Index) 45.2 kg/m2 12/16/2015 Height 73 inches 6'1" Weight 330.00 lb Heart Rate 68 /min BP Systolic Sitting 130 mmHg BP Diastolic Sitting 96 mmHg Respiratory Rate 14 /min BMI (Body Mass Index) 43.5 kg/m2 06/03/2015 Height 73 inches 6'1" Weight 325.00 lb Heart Rate 60 /min BP Systolic Sitting 132 mmHg BP Diastolic Sitting 88 mmHg Respiratory Rate 14 /min BMI (Body Mass Index) 42.9 kg/m2 Results Description No Information Procedures Date CPT Code Description Status 03/25/2018 46781 Polysomnography Sleep Staging 4+ Parameters W/Cpap Completed 05/30/2017 71006 EKG Tracing & Interpretation Completed 05/24/2017 59161 ECHO Transthoracic, Real-Time 2D With Doppler And Color Completed Flow 05/24/2017 31680 ECHO Transthoracic, Real-Time 2D With Doppler And Color Completed Flow 11/22/2016 87092 ECHO Stress Test Incl Perf Contiuous ekg Monitoring Completed W/Phys Superv 11/09/2016 27760 EKG Tracing & Interpretation Completed 10/13/2016 17321 Sleep Study Unattended,HRT Rate,Oxygen Sat,Resp Completed Effort/Airflow 10/11/2016 74347 Color Flow Doppler/Interp & Reprt Completed 10/11/2016 82277 Pulse Wave/Continuous-Interp.RPT Completed 10/11/2016 46344 Echocardiography, Transesophageal, Real Time W/Image 2D Completed W/W/O M-M 10/11/2016 34026 Cardioversion Completed 10/08/2016 23637 ECHO Transthorasic Realtime 2D W Doppler & Color Flow Completed Hosp 10/08/2016 74837 EKG, Interpretation Only Completed 06/27/2015 68508 EKG, Interpretation Only Completed 06/05/2015 53807 Electroencephalogram (EEG) Extended Monitoring 41-60 Completed Minutes Encounters Type Date Location Provider CPT E/M Dx Office Visit 01/20/2018 [facility] Yanelis Raygoza, 04331 G47.33 11:00a [facility] ROMAN RN, KIER TENDER-BC R09.02 Z99.81 Office Visit 01/18/2018 11:30a [facility] [address] G40.909 G43.009 Office Visit 09/27/2017 1:00p [facility] [address] G40.909 G43.009 Office Visit 07/26/2017 2:00p [facility] [address] G40.909 G43.009 Office Visit 05/30/2017 8:45a [facility] Anmol Stoddard 78759 I48.92 Alexx Perera, [facility], [facility] Office Visit 04/15/2017 1:00p [facility] [address] G40.909 Z79.899 Office Visit 03/31/2017 12:34p [facility], Chris Egan, 76115 R07.9 Hospitalists N.P. I48.92 E66.9 Office Visit 01/27/2017 9:15a [facility] [place] [address] G47.33 Services Of Megan R09.02 E66.09 Z68.41 Office Visit 11/09/2016 1:15p [facility] Anmol Perera, 23341 R07.9 Megan Cfofey, [facility], [facility] I49.5 I48.2 I25.10 Z95.0 Office Visit 11/04/2016 3:30p [facility] [place] [address] G47.33 [facility] R09.02 E66.01 Z68.42 Office Visit 10/12/2016 4:40p [facility] Jesus Wilson, 55268 I48.92 Infrastructure Architect M.D. Office Visit 10/12/2016 1:15p [facility] [place] [address] R09.02 [facility] I48.92 E66.01 Office Visit 10/12/2016 9:40a [facility] Maddie Ozuna, 60217 I48.92 Hospitalists M.D. G47.33 E66.01 I10 Office Visit 10/11/2016 4:36p [facility] Jesus Wilson, 46123 I48.92 Infrastructure Architect M.D. Office Visit 10/11/2016 9:40a [facility] Lynsey Blackwood, 54455 I48.92 Hospitalists D.O. G47.33 E66.01 I10 Office Visit 10/10/2016 9:39a [facility] Lynsey Jaison, 85234 I48.92 Hospitalists D.O. G47.33 E66.01 I10 Office Visit 10/10/2016 1:14p [facility] [place] [address] R06.02 [facility] R09.02 R00.0 I48.92 Office Visit 10/10/2016 4:06p [facility] Anmolpenny Perera, 10855 I48.92 Megan Coffey, FACC, FASNC I49.5 Office Visit 10/09/2016 9:39a [facility] Lynsey Jaison, 55097 I48.92 Hospitalists D.O. E66.01 G47.33 I10 Office Visit 10/09/2016 4:24p [facility] Anmol Stoddard Perera, 02614 I48.92 Megan Coffey, FACC, FASNC I49.5 Office Visit 10/08/2016 4:08p [facility] Anmol Richi Perera, 48824 I48.92 M.Judy, FACC, FASNC Office Visit 10/08/2016 9:38a [facility] Deny 58646 I48.92 Hospitalists VERONICA Garibay E66.01 G40.909 I10 Office Visit 10/07/2016 9:37a [facility] 61799 I48.92 Assoc,tracy MARTIN Hospitalists E66.01 G40.909 I10 Office Visit 12/16/2015 4:00p [facility] [place] [address] G40.209 [facility] Office Visit 06/03/2015 1:00p [facility] [place] [address] G40.209 [facility] Plan of Care Future Appointment(s):06/30/2018 10:30 am - [place] Rust M.D. at [facility]04/24/2018 - Yanelis Raygoza DNP, RN, KIER TENDER-BCG47.33 Obstructive sleep apnea (adult) (pediatric)Follow up:1 yearRecommendations: Continue PAP device, Benefitting and compliant with treatment. Will check with [facility] about changing the setting to 11 cm SMITH. You can run the CPAP without the humidifier part. Cleaning Wipe off mask daily (baby wipe-no scent, or warm water) Clean mask, tubing, filter, and water chamber weekly in mildno scent dish soap and water. Hang to dry. So-Clean is an option (not covered by insurance) If you have any sleepiness while driving you MUST avoid operating a vehicle or machinery. If you have difficulty with your equipment, or need to replace your mask or hoses, please contact your homecare agency. A weight change of 20 pounds or more may have an effect on your equipment; if you are experiencingproblems please call for an appointment. If you have any further questions, please call the [facility] at [phone] Other abnormalities of heart beatRecommendations:EKG evaluation of irregular heart beat. Recommend you go to ER for evaluation Triage provided to Chasidy, go to room 12 via wheelchair.
[2018-04-24 09:44] LABS: INR 1.09 (0.77-1.02)
--- NOTE | 2018-04-24 09:54 | RAD ---
Indication: Shortness of breath. Irregular heartbeat. Comparison: March 31, 2017 CT. March 31, 2017 chest radiograph. Technique: Upright AP 0925 hours Report: No focal pulmonary lesion, compelling alveolar consolidation, pleural effusion, pneumothorax. The heart, pulmonary vasculature, and mediastinal contours are unremarkable. IMPRESSION: #. No evidence for acute intrathoracic disease.
[2018-04-24] MEDS ORDERED: Magnesium Oxide TAB* 400 MG PO ONE (10:57)
[2018-04-24] MEDS ORDERED: fentaNYL* 50 MCG/ML 2 ML VIAL (100 MCG VIAL) ONE (12:20)
[2018-04-24] MEDS ORDERED: Naloxone* 0.4 MG/ML 1 ML VIAL ONE (12:21)
[2018-04-24] MEDS ORDERED: Flumazenil* 0.1 MG/ML 5 ML MDV ONE (12:21)
[2018-04-24] MEDS ORDERED: Midazolam* 1 MG/ML 10 ML VIAL (10 MG) ONE (12:21)
--- NOTE | 2018-04-24 12:27 | CONSULT ---
Subjective Date of Service: 04/24/18 Interval History: This is a 58 year old male with hx of PAF/flutter, seizure disorder, HTN, ITP and prostate CA in remission, that presented to the ED with palpitations, found to be in a-flutter with RVR. Patient was bolused with cardizem in ED, and he is now rate controlled but did not convert. Dr. Fleming spoke with the patient's bottom presser Dr. Kaylen Perera who agrees with cardioversion. Patient is already anticoagulated with Eliquis. I spoke with Dr. Wilson who is salesperson handbags who will cardiovert the patient in the ED. We were called to evaluate the patient for observation, however, the patient will be cardioverted and discharged from the ED directly. Family History: Unchanged from Admission - non-contributory Social History: Unchanged from Admission - no tobacco no ETOH no illicit drug use Past Medical History: Unchanged from Admission - per above Review of Systems - Measurements Intake and Output: Intake and Output Last 24 Hours 04/22/18 04/23/18 04/24/18 04/25/18 06:59 06:59 06:59 06:59 Weight 308 lb - Review of Systems Constitutional Symptoms: Negative: Weight Gain, Weight Loss, Weakness, Fatigue, Fever, Night Sweats, Unexplained Falls, Other Dermatology: Negative: Normal, Rash, Skin Lesions, Cancer, Skin Lumps, Other HEENT: Negative: Normal, Change in Hearing, Vertigo, Dental Problems, Tinnitus, Sinus Problem, Other Eyes: Negative: Normal, Change in Vision, Double Vision, Eye Pain, Glaucoma, Cataract, Contacts or Glasses, Other Thyroid: Negative: Normal, Goiter, Thyroid Nodule, Cold Intolerance, Heat Intolerance , Sweatiness, Tremor, Frequent Defecation, Constipation, Palpitations, Primary Hypothyroidism, Primary Hyperthyroidism, Weight Loss, Weight Gain, Change in Skin/Hair, Change in Menstruation, Radiation Exposure, Other Pulmonary: Negative: Normal, Cough, Sputum, Hemoptysis, Wheezing, Respiratory Distress, Shortness of Breath, COPD, Asthma, Exercise Intolerance, Home Oxygen, Other Cardiology: Positive: Palpitations, Swelling of Ankles Gastroenterology: Negative: Normal, Abdominal Pain, Nausea, Vomiting, Anorexia, Indigestion, Difficulty Swallowing, Heartburn, Constipation, Diarrhea, Blood in Stools, Change in Bowel Habits, Haematemesis, Melena, Other Genital - Urinary: Negative: Normal, Dysuria, Hematuria, Polyuria, Nocturia, Other Genitourinary - Male: Negative: Prostatism, Erectile Dysfunction, Family Hx of Prostate Cancer, Other Musculoskeletal: Negative: Joint Pain, Joint Stiffness, Arthritis, Osteoporosis, Low Back Pain , Sciatica, Joint Deformities, Kyphoscoliosis, Other Endocrinology: Negative: Normal, Thyroid Problems, Adrenal Problems, Gonadal Problems, Family Hx Endocrine Disorders, Obesity, Diabetes Mellitus, Hyperglycemia, Hx Hypoglycemia, Diabetic Foot Ulcers, Calluses, Hirsutism, Menstral Abnormalities , Polydipsia, Polyuria, Gonadal Problems, Gynecomastia, Pituitary disease, Other Hematologic/Lymphatic: Negative: Anemia, Easy Brusing, Hx Leukemia, Hx Lymphoma, Use of Anticoagulant, Use of Antiplatelet Drugs, Other Neurology: Negative: Normal, Headache, Migraines, Change in Vision, Diplopia, Dizziness , Change in Balancing, Change in Coordination, Change in Memory, Change in Speech, Change in Sphincter Function, Change in Walking, Numbness\Paresthesiae, Unexplained Weakness, Hx of Stroke\TIA, Hx of Seizures, Other Psychiatry: Negative: Normal, Depression, Anxiety, Depressed Mood, Adhedonia, Sexual Dysfunction, Weight Change, Guilt Feelings, Tearfulness, Unusual Fatigue, Unusual Anxiety, Suicidal Ideation, Hypomania, Eating Disorders, Other Allergic/Immunologic: Negative: Hx Anaphylaxis, Hx Angioedema, Hx Environmental, Hx Seasonal, Athsma, Hx HIV, Immunocompromise, Swollen Glands LymphNodes, Other Objective Vital Signs - 8 hr 04/24/18 04/24/18 04/24/18 09:00 09:47 09:48 Temperature 97.3 F Pulse Rate 111 97 88 Respiratory 20 17 10 Rate Blood Pressure 140/103 110/74 (mmHg) O2 Sat by Pulse 97 98 99 Oximetry 04/24/18 04/24/18 04/24/18 09:49 09:54 09:59 Temperature Pulse Rate 86 86 89 Respiratory 15 19 20 Rate Blood Pressure 123/92 108/92 136/79 (mmHg) O2 Sat by Pulse 93 97 99 Oximetry 04/24/18 04/24/18 04/24/18 10:00 10:04 10:09 Temperature Pulse Rate 91 85 81 Respiratory 14 16 11 Rate Blood Pressure 118/84 124/94 (mmHg) O2 Sat by Pulse 97 93 97 Oximetry 04/24/18 04/24/18 04/24/18 10:14 10:19 10:24 Temperature Pulse Rate 84 83 85 Respiratory 18 14 12 Rate Blood Pressure 126/92 121/93 133/100 (mmHg) O2 Sat by Pulse 96 97 96 Oximetry 04/24/18 04/24/18 04/24/18 10:29 10:34 10:39 Temperature Pulse Rate 87 79 Respiratory 20 10 17 Rate Blood Pressure 123/100 120/89 125/72 (mmHg) O2 Sat by Pulse 97 98 Oximetry 04/24/18 04/24/18 04/24/18 10:44 10:49 10:54 Temperature Pulse Rate Respiratory 12 18 13 Rate Blood Pressure 123/89 132/93 125/78 (mmHg) O2 Sat by Pulse Oximetry 04/24/18 04/24/18 04/24/18 10:59 11:01 11:04 Temperature Pulse Rate 83 82 91 Respiratory 18 13 21 Rate Blood Pressure 134/83 133/95 (mmHg) O2 Sat by Pulse 98 99 98 Oximetry Oxygen Devices in Use Now: None Appearance: alert, well appearing, NAD Eyes: No Scleral Icterus, PERRLA Ears/Nose/Mouth/Throat: NL Teeth, Lips, Gums, Mucous Membranes Moist Neck: NL Appearance and Movements; NL JVP, Trachea Midline, No Thyroid Enlargement, Masses Respiratory: Symmetrical Chest Expansion and Respiratory Effort, Clear to Auscultation Cardiovascular: NL Sounds; No Murmurs; No JVD, - - trace ankle edema, irregular rate, persistent afib on tele Abdominal: NL Sounds; No Tenderness; No Distention Lymphatic: No Cervical Adenopathy Extremities: No Clubbing, Cyanosis Skin: No Rash or Ulcers Neurological: Alert and Oriented x 3, NL Sensation, NL Gait, NL Muscle Strength and Tone Nutrition: - - NPO for procedure Result Diagrams: 04/24/18 09:16 04/24/18 09:16 Assessment/Plan - Billing Impression: This is a 58 year old male with history of PAF, seizure DO, HTN, prostate CA (post-prostatectomy) and ITP (post-spelenectomy) that presented to ED with aflutter with RVR, clinically stable. Diagnoses: 1. Paroxysysmal A-flutter - Already on Eliquis - Discussed with Dr. Wilson and RASHAAD, patient will be cardioverted in the ED - Will be discharged directly from ER post-procedure - Patient should follow up with Dr. Perera, his primary bottom presser as an outpatient and his PCP 2. Hypomagnesmia - Mild at 1.7 - Oral magnesium repletion per ED 3. Hx of HTN - Stable 4. Hx of Seizure DO - Stable on lamicatal 100mg BID Code Status: FULL Admission Status and Rationale: Medicine consult only, patient will be discharged. Please reconsult if needed. Thank you.
[2018-04-24 14:11] VITALS: BP 120/80
--- NOTE | 2018-04-24 14:47 | CONS ---
CC: Dr. Anmol Perera; Dr. Augustine CARDIOLOGY CONSULTATION: DATE OF CONSULT: 04/24/18 INDICATION FOR CONSULT: Atrial flutter. HISTORY OF PRESENT ILLNESS: The patient is a 58-year-old gentleman with a history of hypertension, s leep apnea, paroxysmal atrial flutter, who noted the onset of palpitations this morning. 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 On arrival to the emergency room, he was in atrial flutter with controll ed ventricular response. The patient denied any angina. He denied any nausea or vomiting. He denie d any shortness of breath. He just knew his heart rate was irregular. The patient states his last m eal was last night at 7 o'clock. PAST MEDICAL HISTORY: Significant for hypertension; seizure disorder; prostate cancer, status post p rostatectomy; migraine headaches; depression; sleep apnea. MEDICATIONS: Outpatient medications: 1. Omeprazole 40 mg a day. 2. Eliquis 5 mg b.i.d. 3. Amlodipine 5 mg a day. 4. Simvastatin 5 mg a day. ALLERGIES: To NAPROSYN and NUTRISEED. FAMILY HISTORY: No history of early coronary artery disease. SOCIAL HISTORY: He is . He works mostly in computer. He denies tobacco or alcohol use. He is on chronic narcotics for back pain. REVIEW OF SYSTEMS: Negative for fevers or chills. Negative for changes in bowel or bladder. Negati ve for change in weight. All other 12-point review is unremarkable. PHYSICAL EXAM: Height is 6 feet 1 inch, weight is 308 pounds, heart rate is 83 and irregular, blood pressure 134/83, respiratory rate is 18, oxygen saturation 98% on room air, temperature 97.3. Sclera e anicteric. Oropharynx is pink without erythema. Carotids are 2+ without bruits. JVD is normal. Thyroid is normal. Cardiac Exam: S1, S2 without any murmurs, rubs, or gallops. Lungs are clear to a uscultation bilaterally. There is no dullness to percussion. Abdomen is soft, nontender, and nondis tended with normoactive bowel sounds. Extremities show no edema. He has 2+ pulses throughout. The patient is awake and alert and oriented. He moves all 4 extremities equally. DIAGNOSTIC STUDIES/LAB DATA: CBC within normal limits. Chemistries are within normal limits. AST a nd ALT are normal. TSH is normal. BNP is 9. Troponin 0.0 x2. EKG demonstrates atrial flutter with controlled ventricular response. IMPRESSION AND PLAN: This is a 58-year-old gentleman with a history of atrial flutter, who noted the onset of irregular heartbeat earlier today. The patient comes to the emergency room. He is in atri al flutter with controlled ventricular response. In the past, the patient has not converted to pro l sinus rhythm on his own and plan will be scheduled for a cardioversion today. The patient will fol low up with Dr. Perera as an outpatient. [id number]/[facility] #: [id number]
--- NOTE | 2018-04-25 01:01 | CARD ---
CC: Dr. Anmol Perera; Dr. De Guzman * CARDIOVERSION REPORT: DATE OF PROCEDURE: 04/24/18 - EMERGENCY DEPT PROCEDURE: Cardioversion. INDICATION: Atrial flutter. The patient is a 58-year-old gentleman with a history of paroxysmal atrial fibrillation, history of sleep apnea, who noticed the onset of irregular heartbeat earlier today. He came to the emergency room and was noted to be in atrial flutter. The patient is on chronic anticoagulation with Eliquis. His last cardioversion was 10/12/16. DESCRIPTION OF PROCEDURE: The patient was in a fasting state. Informed consent had been obtained prior to the procedure. All labs were reviewed. The patient was given 5 mg of Versed and 50 mcg of fentanyl. The patient was cardioverted with 200 joules of synchronized biphasic energy. The patient converted to normal sinus rhythm. The patient tolerated the procedure well with no complications. The patient will be seen and followup as an outpatient with Dr. Perera. [id number]/[facility] #: [id number] [facility]
== END 2018-04-24 14:10 | disposition home or self-care (01) ==
LOC: ED 08:57
DX: I48.92 Unspecified atrial flutter (principal); R06.02 Shortness of breath; R00.2 Palpitations; Z87.891 Personal history of nicotine dependence
CPT/HCPCS: 36415; 71045; 80053; 82550; 82553; 83605; 83735; 83880; 84443; 84484; 85025; 85610; 85730; 92960; 93005; 96374; 99156; 99157; 99283; J2250; J2310; J3010

== ENCOUNTER 2024-08-16 07:38 | Observation (INO) ==
[2024-08-16 08:35] LABS: Mean Platelet Volume 9.8 fL (7.5-11.2); Platelet Count 231 10^3/uL (150-450)
[2024-08-16 08:44] LABS: Activated Partial Thrombo Time 32.6 seconds (26.0-38.0); INR 1.04 (0.85-1.14)
[2024-08-16] MEDS: Glucagon 1 mg VIAL KIT ONE (09:50)
[2024-08-16] MEDS: ceFAZolin 1 GM in Dextrose 1 GM/50 ML BAG ONE (11:01)
[2024-08-16] MEDS: Midazolam 2 mg/2 ml VIAL 1 mg/ml 2 ml VIAL (2 mg) ONE (11:02)
[2024-08-16] MEDS: fentaNYL 250 mcg/5 ml 50 MCG/ML 5 ml VIAL (250 MCG) ONE (11:02)
[2024-08-16] MEDS: Lidocaine 2% JELLY 6 ML Topical TOPICAL ONE (11:02)
[2024-08-16] MEDS ORDERED: Ondansetron 4 mg VIAL 2 MG/ML 2 ml VIAL IV PRN (12:17)
[2024-08-16] MEDS ORDERED: Morphine 2 MG/ML SYRINGE IV PRN (12:17)
[2024-08-16] MEDS: Morphine 2 MG/ML SYRINGE IV PRN (12:40)
[2024-08-16] MEDS: fentaNYL 100 mcg/2 ml 50 MCG/ML VIAL ONE (12:54)
[2024-08-17 06:10] LABS: ABS Basophils 0.1 10^3/uL (0.0-0.1); ABS Eosinophils 0.3 10^3/uL (0.0-0.5); ABS Lymphocytes 2.3 10^3/uL (1.0-4.8); ABS Monocytes 1.1 10^3/uL (Not Estab.); ABS Neutrophils 6.6 10^3/uL (1.5-7.6); ABS Nucleated RBC 0.01 10^3/ul; Eosinophil % 2.8 %; Hematocrit 40.9 % (Not Estab.); Hemoglobin 13.6 g/dL (Not Estab.); Lymphocyte % 22.2 %; Mean Corpuscular Hemoglobin 29.9 pg (27-33); Mean Corpuscular Hgb Conc 33.2 g/dL (31-36); Mean Corpuscular Volume 90.1 fL (80-97); Mean Platelet Volume 10.1 fL (7.5-11.2); Nucleated Red Blood Cells % 0.1 %/100WBC (0.0-0.8); Platelet Count 220 10^3/uL (150-450); Red Blood Count 4.54 10^6/uL (Not Estab.); Red Cell Distribution Width 15.2 % (12-17); White Blood Count 10.3 10^3/uL (Not Estab.)
[2024-08-17 06:26] LABS: Calcium 9.1 mg/dL (8.6-10.3); Magnesium 1.6 mg/dL (1.9-2.7); Potassium 3.6 mmol/L (3.5-5.0)
[2024-08-17 07:51] LABS: Creatinine, Serum 0.7 mg/dL (0.67-1.17); eGFR CKD-EPI 104.2 (>60)
[2024-08-17] MEDS: Magnesium Sulfate 2 gm BAG 2 GM/50 ML BAG IVPB ONE (07:54)
[2024-08-17] MEDS: Aspirin EC 81 mg TAB.EC (enteric coated) PO SCH (08:53)
[2024-08-17 10:11] VITALS: BP 131/86
== END 2024-08-17 13:30 | disposition home or self-care (01) ==
LOC: EDSEX 07:38 → SSU 07:38 → SP 07:38 → EDSEX 11:48
PROVIDERS: ADMIT Student in an Organized Health Care Education/Training Program; ATTEND Internal Medicine Gastroenterology